=== PATIENT | male | born 1950 ===

== ENCOUNTER 2019-11-23 15:44 | Inpatient (IN) | payer OTHER, MEDICARE, SELFPAY ==
[2019-11-23] VITALS (27 sets, daily range): BP systolic 55–112; BP diastolic 23–51; PULSE 75–108; RESP 17–18; TEMP 35.8; O2SAT 82–98; BMI 29.9
--- NOTE | 2019-11-23 15:57 | XRR_ITS ---
PROCEDURE INFORMATION: Exam: XR Chest, 1 View Exam date and time: 11/23/2019 4:30 PM Age: 69 years old Clinical indication: Fever TECHNIQUE: Imaging protocol: XR of the chest Views: 1 view. COMPARISON: CR Chest 1 [place] [id number] 07/02/2018 10:27 AM FINDINGS: Lungs: There is a 3.7 cm sized mass overlying the right hilus, probably in the superior segment of the right lower lobe. There is also some mild bronchial wall thickening and patchy infiltrate in the right lower lobe. Findings are worrisome for pulmonary mass new compared with 07/02/2018. Further evaluation is recommended, beginning with PA and lateral views of the chest. Left lung is clear. Pleural space: Unremarkable. No pleural effusion. No pneumothorax. Heart/Mediastinum: Heart is upper limits normal in size. Vasculature: There are atherosclerotic changes in the aortic arch. Bones/joints: Unremarkable. XR/XR chest 1V portable [id number] IMPRESSION: Right pulmonary mass worrisome for malignancy. Further evaluation is recommended.
--- NOTE | 2019-11-23 15:57 | ECG_ITS ---
Measurements Intervals [place] Rate: 76 P: 74 SD: 249 QRS: 23 QRSD: 95 T: 54 QT: 376 QTc: 424 SINUS RHYTHM WITH FIRST DEGREE AV BLOCK Compared to ECG 07/02/2018 10:22:54 No significant changes Electronically Signed On 11-23-2019 21:02:43 RN ORTHOPEDIC by Tj Rios M.D. [id number]
--- NOTE | 2019-11-23 16:00 | ED_ITS ---
Entered by Maris Chisholm, acting as scribe for Inga Toledo MD HPI - Weakness General: Chief complaint: Weakness Stated complaint: GENERAL WEAKNESS Time Seen by Provider: 11/23/19 16:00 Source: patient and EMS Mode of arrival: EMS Limitations: no limitations History of Present Illness: HPI Narrative: 69 yo male presents to ED with complaints of weakness. The patient caregiver states the patient has not had anything to eat or drink since (4 days ago) and she said he has been weak.. When asked why, the patient said he hasn't been hungry or thirsty. The caregiver then said he smokes 3 packs of cigarettes per day and he has had no cigarettes since , as well. The patient's PCP is Dr Mayorga/[place] Complaint: generalized weakness Onset (ago): day(s) (4) Duration: constant Location: generalized Migration: none Severity: severe Relieving factors: none Exacerbating factors: none Associated symptoms: Reports decreased appetite; Denies chest pain, chills, dysuria, easy bruising, fever(s), headache(s), nausea or vomiting Review of Systems Const: Denies: fever, chills, body aches or change in appetite Eyes: Denies: blurry vision or eye discomfort ENMT: Denies: throat pain or dental pain Card: Denies: chest pain Resp: Denies: shortness of breath GI: Denies: abdominal pain, nausea, vomiting or diarrhea : Denies: painful urination Musc: Denies: neck pain or back pain Skin/Breast: Denies: rash Neuro: Denies: headache Psych: Denies: depression Harjit/Lymph: Denies: easy bruising All/Imm: Denies: hives PFSH ED PFSH: Statuses (acute, chronic, etc) shown below reflect problem list status as previously entered and may not be historically accurate Medical History (Updated 11/23/19 @ 23:51 by Inga Toledo MD) Aneurysm of infrarenal abdominal aorta (Acute) CAD (coronary artery disease) (Acute) Hypertension (Acute) Nephrolithiasis (Acute) Social History Smoking and tobacco status: current every day smoker Physical Exam Const: COMMON NORMALS: oriented x3 GENERAL APPEARANCE: in distress, disheveled, lethargic and ill appearing ORIENTATION/CONSCIOUSNESS: Yes lethargic HENMT: COMMON NORMALS: normocephalic, head/scalp atraumatic and hearing grossly normal bilaterally HEAD & SCALP: normocephalic and atraumatic Eye: COMMON NORMALS: PERRL PUPIL: Yes PERRL Neck/C-Spine: COMMON NORMALS: full ROM Chest: COMMONS NORMALS: inspection of chest normal and palpation of chest normal Resp: COMMON NORMALS: normal respiratory effort, no retractions, no use of accessory muscles and clear to auscultation bilaterally AUSCULTATION: clear to auscultation bilaterally Cardio: COMMON NORMALS: regular rate and regular rhythm RATE: regular rate RHYTHM: regular rhythm GI: COMMON NORMALS: normal to inspection, nondistended, normoactive bowel sounds, soft to palpation, non-tender and no hepatosplenomegaly PALPATION: Yes soft and Yes no hepatosplenomegaly Extremity: COMMON NORMALS: normal to inspection Neuro: COMMON NORMALS: oriented x3 SENSORIUM/ORIENTATION: Yes lethargic Psych: COMMON NORMALS: mental status grossly normal Procedures Central Line Placement Right IJ: Time Out Performed: Yes Patient Placed on Monitor/Pulse Ox: Yes MD Prep: mask, gown and gloves Central Line Prep: Povidone-Iodine 1% Ultrasound Used for Placement: Yes Central Line Lumen Inserted: triple Post Procedure: sutured in place, good blood return, all ports aspirated, flushed, capped and sterile dressing applied Post Procedure X-Ray: tip of catheter in good position and no pneumothorax seen Patient Tolerated Procedure: well Complications: none Course Vital Signs: Vital signs: Vital Signs Temperature 96.5 F L 11/23/19 15:35 Pulse Rate 89 11/23/19 22:36 Respiratory Rate 17 11/23/19 22:26 Blood Pressure 92/29 11/23/19 22:36 Pulse Oximetry 97 11/23/19 22:36 MDM - Weakness MDM Narrative: Medical decision making narrative: Patient presents here with multiple issues. Patient has septic shock likely due to UTI. Patient is also quite dehydrated causing acute kidney injury likely causing hypotension as well. Patient had a central line started here and placed on IV fluids along with pressors. Patient given IV antibiotics. Spoke to hospitalist will admit patient to ICU. Patient's blood pressure is improving here. Lab Data: Labs: Lab Results 11/23/19 11/23/19 11/23/19 Range/Units 16:38 16:38 18:07 WBC 21.6 H (4.0-10.0) 10^3/ uL RBC 4.62 (4.1-5.3) 10^6/u L Hgb 12.2 (11.7-16.6) g/dL Hct 38.0 L (42.0-52.0) % MCV 82.3 (80-94) fL MCH 26.4 L (28.0-34.0) pg MCHC 32.1 (30.0-36.0) g/dL RDW 15.4 H (12.1-15.1) % Plt Count 353 (130-400) 10^3/c mm MPV 9.6 (7.4-10.4) fL Neut % (Auto) 88.6 % Lymph % (Auto) 4.9 % [place] % (Auto) 5.1 % Eos % (Auto) 0.1 % Baso % (Auto) 0.1 % Neut # (Auto) 19.1 H (1.8-7.7) 10^3/u L Lymph # (Auto) 1.1 (0.8-4.8) 10^3/u L [place] # (Auto) 1.1 H (0.2-0.9) 10^3/u L Eos # (Auto) 0.0 (0.0-0.8) 10^3/u L Baso # (Auto) 0.0 (0.0-0.1) 10^3/u L Nucleated RBC % (a uto) 0 % Nucleated RBCs # 0.0 /100WBC Sodium 127 L (136-145) mmol/L Potassium 3.9 (3.5-5.1) mmol/L Chloride 86 L (98-107) mmol/L Carbon Dioxide 16 L (22-29) mmol/L Anion Gap 28.9 H (5-19) BUN 219 H* (8-23) mg/dL Creatinine 9.1 H* (0.7-1.2) mg/dL Glucose 101 (74-106) mg/dL Lactic Acid (0.5-2.2) mmol/L Calcium 10.4 (8.5-10.5) mg/dL Total Bilirubin 0.5 (0.15-1.2) mg/dL AST 24 (0-40) U/L ALT 16 (0-41) U/L Alkaline Phosphata se 93 (40-130) IU/L Total Protein 7.8 (6.6-8.7) g/dL Albumin 3.6 (3.5-5.2) g/dL Globulin 4.2 (1.3-4.6) g/dL Urine Color Brown (Yellow) Urine Appearance Turbid (CLEAR) Urine pH 5 (5-7) Ur Specific Gravit y 1.020 (1.005-1.030) Urine Protein 3+ H (Negative) Urine Glucose (UA) Trace H (Normal) Urine Ketones 1+ H (Negative) Urine Occult Blood 3+ H (Negative) Urine Nitrate Negative (Negative) Urine Bilirubin 1+ H (NEGATIVE) Prot Sulfosalicyli c Acd Negative Urine Urobilinogen Norm (Negative) mg/dL Ur Leukocyte Heather ase 2+ H (Negative) Urine RBC 50-80 H (0-2) /hpf Urine WBC 40-55 H (0-5) /hpf Ur Squamous Epith Cells 0-4 H (0-5) Urine Bacteria 4+ H (NONE) Urine Mucus 1+ 02/01/07 Range/Units 18:42 WBC (4.0-10.0) 10^3/ uL RBC (4.1-5.3) 10^6/u L Hgb (11.7-16.6) g/dL Hct (42.0-52.0) % MCV (80-94) fL MCH (28.0-34.0) pg MCHC (30.0-36.0) g/dL RDW (12.1-15.1) % Plt Count (130-400) 10^3/c mm MPV (7.4-10.4) fL Neut % (Auto) % Lymph % (Auto) % [place] % (Auto) % Eos % (Auto) % Baso % (Auto) % Neut # (Auto) (1.8-7.7) 10^3/u L Lymph # (Auto) (0.8-4.8) 10^3/u L [place] # (Auto) (0.2-0.9) 10^3/u L Eos # (Auto) (0.0-0.8) 10^3/u L Baso # (Auto) (0.0-0.1) 10^3/u L Nucleated RBC % (a uto) % Nucleated RBCs # /100WBC Sodium (136-145) mmol/L Potassium (3.5-5.1) mmol/L Chloride (98-107) mmol/L Carbon Dioxide (22-29) mmol/L Anion Gap (5-19) BUN (8-23) mg/dL Creatinine (0.7-1.2) mg/dL Glucose (74-106) mg/dL Lactic Acid 1.9 (0.5-2.2) mmol/L Calcium (8.5-10.5) mg/dL Total Bilirubin (0.15-1.2) mg/dL AST (0-40) U/L ALT (0-41) U/L Alkaline Phosphata se (40-130) IU/L Total Protein (6.6-8.7) g/dL Albumin (3.5-5.2) g/dL Globulin (1.3-4.6) g/dL Urine Color (Yellow) Urine Appearance (CLEAR) Urine pH (5-7) Ur Specific Gravit y (1.005-1.030) Urine Protein (Negative) Urine Glucose (UA) (Normal) Urine Ketones (Negative) Urine Occult Blood (Negative) Urine Nitrate (Negative) Urine Bilirubin (NEGATIVE) Prot Sulfosalicyli c Acd Urine Urobilinogen (Negative) mg/dL Ur Leukocyte Heather ase (Negative) Urine RBC (0-2) /hpf Urine WBC (0-5) /hpf Ur Squamous Epith Cells (0-5) Urine Bacteria (NONE) Urine Mucus Imaging Data^: CXR: Radiologist's impression: [address] [address] XRay Report Signed with Addenda Patient: Corbin Morgan #: [id number] : 8Acct#:[id number] Age/Sex: 69 / MADM Date: 11/23/19 Loc: ERRoom/Bed: Attending Dr: Ordering Provider/Ordering MD: Inga Toledo MD Date of Service: 11/23/19 Procedure(s): XR chest 1V portable [id number] Accession Number(s): [id number] Report Number: [id number] ADDENDUM XR/XR chest 1V portable [id number] Addendum: THIS REPORT CONTAINS FINDINGS THAT MAY BE CRITICAL TO PATIENT CARE. The findings were verbally communicated via telephone conference with inga Toledo at 5:12 PM [employer] on 11/23/2019. The findings were acknowledged and understood. Addendum Dictated By: Marco A Ramos Addendum Signed By: Hussein Ramos Date/Time:11/23/191714 Addendum Cosigned By: PROCEDURE INFORMATION: Exam: XR Chest, 1 View Exam date and time: 11/23/2019 4:30 PM Age: 69 years old Clinical indication: Fever TECHNIQUE: Imaging protocol: XR of the chest Views: 1 view. COMPARISON: CR Chest 1 [place] [id number] 07/02/2018 10:27 AM FINDINGS: Lungs: There is a 3.7 cm sized mass overlying the right hilus, probably in the superior segment of the right lower lobe. There is also some mild bronchial wall thickening and patchy infiltrate in the right lower lobe. Findings are worrisome for pulmonary mass new compared with 07/02/2018. Further evaluation is recommended, beginning with PA and lateral views of the chest. Left lung is clear. Pleural space: Unremarkable. No pleural effusion. No pneumothorax. Heart/Mediastinum: Heart is upper limits normal in size. Vasculature: There are atherosclerotic changes in the aortic arch. Bones/joints: Unremarkable. XR/XR chest 1V portable [id number] IMPRESSION: Right pulmonary mass worrisome for malignancy. Further evaluation is recommended. Dictated By:Marco A Ramos Signed By:Hussein Ramos Date/Time:11/23/191706 DD/ CT Chest: Radiologist's impression: [address] [address] [address] Scan Report Signed Patient: Corbin Morgan #: [id number] : 8Acct#:[id number] Age/Sex: 69 / MADM Date: 11/23/19 Loc: ERRoom/Bed: Attending Dr: Ordering Provider/Ordering MD: Inga Toledo MD Date of Service: 11/23/19 Procedure(s): CT chest wo greyson [id number] Accession Number(s): [id number] Report Number: [id number] PROCEDURE INFORMATION: Exam: CT Chest Without Contrast Exam date and time: 11/23/2019 5:34 PM Age: 69 years old Clinical indication: Cough and fever; Patient HX: Cough with fever. Abnormal cxr. ; Additional info: Mass TECHNIQUE: Imaging protocol: Computed tomography of the chest without contrast. Total DLP: 943.63 mGy-cm Radiation optimization: All CT scans at this facility use at least one of these dose optimization techniques: automated exposure control; mA and/or kV adjustment per patient size (includes targeted exams where dose is matched to clinical indication); or iterative reconstruction. COMPARISON: CR XR chest 1V portable [id number] 11/23/2019 4:17 PM FINDINGS: Lungs: There is a 3/2 x 5.0 x 3.5 cm mass in the superior segment of the left lower lobe corresponding with abnormality is described on today's chest radiograph. This is abutting the superior end of the major fissure and may be slightly crossing the fissure and also extends to the posterior pleural surface. Further evaluation such as with tissue sampling is suggested. There is some mild dependent atelectasis at the right lung base and also some mild bronchial wall thickening in the right lower lobe which could represent superimposed infectious or inflammatory disease. Pleural space: See Lungs Finding. Heart: There is severe atherosclerotic calcification of the coronary arteries. Mediastinum: Mass extends to the right hilar region. There is calcified granuloma in the right middle lobe and there are right hilar and subcarinal calcifications in keeping with old granulomatous disease. Aorta: There are moderate atherosclerotic changes throughout the aortic arch and descending thoracic aorta with minimal outpouching in the mid descending thoracic aorta which could represent small aneurysm of doubtful clinical significance. Lymph nodes: There is also right hilar adenopathy and subcarinal and right paratracheal adenopathy with the largest right paratracheal lymph node measuring approximately 3.3 x 2.2 cm and the subcarinal nodes measuring approximately 3.3 x 2.4 cm. Gallbladder and bile ducts: Multiple calcified gallstones are present. Kidneys and ureters: There are multiple right renal collecting system calcifications. There are multiple benign-appearing simple cysts in the upper pole regions of both kidneys, the largest measure 2.4 cm in the upper pole of the left kidney. There is also a 2 cm sized hyperdense cyst in the upper pole of the left kidney. No further workup is recommended. Bones/joints: Unremarkable. No acute fracture. Soft tissues: Unremarkable. CT/CT chest wo con [id number] IMPRESSION: 1. Right lower lobe mass which is highly suspicious for malignancy. Further evaluation such as with tissue sampling is suggested. Highly suspicious nodule(s). Consider PET/CT, or tissue sampling.(Sue et al., Fleischner Society, 2017) 2. Right hilar and mediastinal adenopathy. 3. Atherosclerotic coronary artery disease 4. Atherosclerotic changes in the aortic arch with minimal aneurysm of the descending thoracic aorta 5. Cholelithiasis 6. Nephrolithiasis Radiation Dose CTDIVOL = (mGy): DLP = 943.63 (mGy-cm) Dictated By:Marco A Ramos Signed By:Ryan Ramosigned Date/Time:11/23/191814 DD/ Critical Care Time Critical Care Time: Critical Care Time: Yes Total Critical Care Time: 35 Attestation: 35 minutes of critical care time was used in treatment of this patient. Patient required monitoring of cardiac output due to hypotension and started on pressors to manage his cardiac output with hypotension. Patient was also quite dehydrated given IV fluids for this. Continue to monitor his respiratory status as well. These 35 minutes of critical care time were separate from procedures. Discharge Plan Discharge Patient Disposition: Admitted As Inpatient Admit Provider: Rolando Booker Clinical Impression: Acute renal failure superimposed on stage 2 chronic kidney disease, Septic shock due to urinary tract infection, Right lower lobe lung mass Condition: Stable Interventions: ED Discharge Assessment Last Done: 11/23/19 23:49 Discharge Date/Time: 11/23/19 23:50 Coding Level of Care Code ED Ethylbenzene Oxidizer for Chg Fwd The documentation recorded by the Phan martinez Valerie R accurately reflects the service I personally performed and the decisions made by Tre siu Korby, MD Nov 23, 2019 15:44
[2019-11-23 16:49] LABS: Basophils % 0.1 %; Eosinophils % 0.1 %; Hemoglobin 12.2 g/dL (11.7-16.6); Lymphocytes # 1.1 10^3/uL (0.8-4.8); Lymphocytes % 4.9 %; Mean Corpuscular HGB Conc 32.1 g/dL (30.0-36.0); Mean Corpuscular Hemoglobin 26.4 pg (28.0-34.0); Mean Corpuscular Volume 82.3 fL (80-94); Mean Platelet Volume 9.6 fL (7.4-10.4); Monocytes # 1.1 10^3/uL (0.2-0.9); Monocytes % 5.1 %; Neutrophils # 19.1 10^3/uL (1.8-7.7); Neutrophils % 88.6 %; Nucleated Red Blood Cells % 0 %; Platelet Count 353 10^3/cmm (130-400); Red Blood Count 4.62 10^6/uL (4.1-5.3); Red Cell Distribution Width 15.4 % (12.1-15.1); White Blood Count 21.6 10^3/uL (4.0-10.0)
[2019-11-23 17:02] LABS: Alanine Aminotransferase 16 U/L (0-41); Albumin Level 3.6 g/dL (3.5-5.2); Alkaline Phosphatase 93 IU/L (40-130); Anion Gap 28.9 (5-19); Aspartate Amino Transferase 24 U/L (0-40); Calcium 10.4 mg/dL (8.5-10.5); Carbon Dioxide 16 mmol/L (22-29); Chloride 86 mmol/L (98-107); Globulin 4.2 g/dL (1.3-4.6); Glucose 101 mg/dL (74-106); Potassium 3.9 mmol/L (3.5-5.1); Sodium 127 mmol/L (136-145); Total Bilirubin 0.5 mg/dL (0.15-1.2); Total Protein 7.8 g/dL (6.6-8.7)
[2019-11-23 17:12] LABS: Blood Urea Nitrogen 219 mg/dL (8-23)
--- NOTE | 2019-11-23 17:17 | CTR_ITS ---
PROCEDURE INFORMATION: Exam: CT Chest Without Contrast Exam date and time: 11/23/2019 5:34 PM Age: 69 years old Clinical indication: Cough and fever; Patient HX: Cough with fever. Abnormal cxr. ; Additional info: Mass TECHNIQUE: Imaging protocol: Computed tomography of the chest without contrast. Total DLP: 943.63 mGy-cm Radiation optimization: All CT scans at this facility use at least one of these dose optimization techniques: automated exposure control; mA and/or kV adjustment per patient size (includes targeted exams where dose is matched to clinical indication); or iterative reconstruction. COMPARISON: CR XR chest 1V portable [id number] 11/23/2019 4:17 PM FINDINGS: Lungs: There is a 3/2 x 5.0 x 3.5 cm mass in the superior segment of the left lower lobe corresponding with abnormality is described on today's chest radiograph. This is abutting the superior end of the major fissure and may be slightly crossing the fissure and also extends to the posterior pleural surface. Further evaluation such as with tissue sampling is suggested. There is some mild dependent atelectasis at the right lung base and also some mild bronchial wall thickening in the right lower lobe which could represent superimposed infectious or inflammatory disease. Pleural space: See Lungs Finding. Heart: There is severe atherosclerotic calcification of the coronary arteries. Mediastinum: Mass extends to the right hilar region. There is calcified granuloma in the right middle lobe and there are right hilar and subcarinal calcifications in keeping with old granulomatous disease. Aorta: There are moderate atherosclerotic changes throughout the aortic arch and descending thoracic aorta with minimal outpouching in the mid descending thoracic aorta which could represent small aneurysm of doubtful clinical significance. Lymph nodes: There is also right hilar adenopathy and subcarinal and right paratracheal adenopathy with the largest right paratracheal lymph node measuring approximately 3.3 x 2.2 cm and the subcarinal nodes measuring approximately 3.3 x 2.4 cm. Gallbladder and bile ducts: Multiple calcified gallstones are present. Kidneys and ureters: There are multiple right renal collecting system calcifications. There are multiple benign-appearing simple cysts in the upper pole regions of both kidneys, the largest measure 2.4 cm in the upper pole of the left kidney. There is also a 2 cm sized hyperdense cyst in the upper pole of the left kidney. No further workup is recommended. Bones/joints: Unremarkable. No acute fracture. Soft tissues: Unremarkable. CT/CT chest wo con [id number] IMPRESSION: 1. Right lower lobe mass which is highly suspicious for malignancy. Further evaluation such as with tissue sampling is suggested. Highly suspicious nodule(s). Consider PET/CT, or tissue sampling.(Sue et al., Fleischner Society, 2017) 2. Right hilar and mediastinal adenopathy. 3. Atherosclerotic coronary artery disease 4. Atherosclerotic changes in the aortic arch with minimal aneurysm of the descending thoracic aorta 5. Cholelithiasis 6. Nephrolithiasis Radiation Dose CTDIVOL = (mGy): DLP = 943.63 (mGy-cm)
--- NOTE | 2019-11-23 17:44 | PC.NURSE ---
patient to ct
--- NOTE | 2019-11-23 18:11 | PC.NURSE ---
patient cathed with straight cath using sterild technique small amount of urine prodiced
[2019-11-23 18:23] LABS: Bilirubin Urine 1+ (NEGATIVE); Blood Urine 3+ (Negative); Glucose Urine UA Trace (Normal); Ketones Urine 1+ (Negative); Leukocyte Esterase Urine 2+ (Negative); Nitrate Urine Negative (Negative); Protein Urine 3+ (Negative); Sulfosalicylic Acid Urine Negative; Urine Appearance Turbid (CLEAR); Urine Color Brown (Yellow); Urobilinogen Urine Norm (Negative); pH Urine 5 (5-7)
[2019-11-23 18:26] LABS: Add Urine Culture? Yes; Bacteria Urine 4+; Mucus Urine 1+; RBC Urine 50-80 /hpf (0-2); Squamous Epithelial Cell Urine 0-4 (0-5); WBC Urine 40-55 /hpf (0-5)
--- NOTE | 2019-11-23 18:43 | CTR_ITS ---
PROCEDURE INFORMATION: Exam: CT Abdomen And Pelvis Without Contrast Exam date and time: 11/23/2019 6:51 PM Age: 69 years old Clinical indication: Abdominal pain; Generalized; Additional info: Abd pain TECHNIQUE: Imaging protocol: Computed tomography of the abdomen and pelvis without contrast. Total DLP: 824.1 mGy-cm Radiation optimization: All CT scans at this facility use at least one of these dose optimization techniques: automated exposure control; mA and/or kV adjustment per patient size (includes targeted exams where dose is matched to clinical indication); or iterative reconstruction. COMPARISON: CT Abdomen/Pelvis Renal [id number] 04/18/2017 2:43 PM FINDINGS: Limitations: The absence of intravenous contrast lessens the sensitivity of this study for solid organ. abnormalities. Liver: There is no focal abnormality within the liver. Gallbladder and bile ducts: Multiple calcified gallstones are present. Pancreas: The pancreas is normal. Spleen: The spleen is normal. Adrenals: The adrenal glands are normal. Kidneys and ureters: There are multiple right renal collecting system calcifications. Some calcifications central to both kidneys are likely to be vascular. There are multiple benign-appearing simple cysts in both kidneys, the largest measure 2.6 cm in the lower pole of the left kidney. There is also a 2 cm sized hyperdense cyst in the upper pole of the left kidney. There is also an indeterminate 12 mm sized lesion arising from the lower pole of the right kidney with indeterminate density. Recommend MR without and with contrast or CT without and with contrast. MR is preferred for masses under 1.5 cm. There is no evidence of hydronephrosis. There is no stone along the course of either ureter. Stomach and bowel: Moderate diverticulosis is present in the distal colon. There is no evidence of colitis/diverticulitis. Appendix: Not identifiedThe lumbar spine demonstrates moderate degenerative changes at multiple levels. Intraperitoneal space: There is no evidence of leakage or extravasation. There is no evidence of free intraperitoneal fluid. Vasculature: There is mild suprarenal aneurysm of the abdominal aorta with maximum diameter of 3.5 cm. There is also fusiform infrarenal abdominal aortic aneurysm with maximum diameter of 4.0 cm. Lymph nodes: There is a 12 mm size nodule adjacent to the right adrenal gland, probably benign lymph node. This is smaller than on 04/18/2017 Bladder: There is a 1.6 cm size calcification within the urinary bladder representing a bladder stone larger than on the previous study. Urinary bladder is not distended on this examination. Reproductive: Unremarkable as visualized. Bones/joints: Unremarkable. No acute fracture. Soft tissues: Unremarkable. CT/CT abdomen pelvis wo con [id number] IMPRESSION: 1. Multiple benign-appearing bilateral kidney cysts with 1 indeterminate lesion in the lower pole of the right kidney. Further evaluation is suggested. 2. Infrarenal abdominal aortic aneurysm is slightly larger than on 04/18/2017. 3. Kidney stones without evidence of obstruction 4. Stone in the urinary bladder COMMENT: Consistent with the [employer]'s Incidental Findings Committee white paper (J Am Luis Radiol 2017): For any incidental adrenal lesion greater than 1.0 cm but less than 4.0 cm classified in this report as benign or likely benign (including classification as an adenoma or myelolipoma), no follow-up imaging is recommended per consensus recommendations based on imaging criteria. Further lab evaluation could be pursued if warranted based on clinical findings. Radiation Dose CTDIVOL = (mGy): DLP = 824.1 (mGy-cm)
[2019-11-23 19:09] LABS: Lactic Sepsis W/Reflex 1.9 mmol/L (0.5-2.2)
[2019-11-23] MEDS: sodium chloride 0.9% 1,000 ML 999 ML IV ×2 (19:13→19:35)
[2019-11-23] MEDS: HYDROcodone-acetaminophen 7.5-325 mg Tablet 1 TAB PO (19:16)
[2019-11-23] MEDS: piperacillin-tazobactam 3.375 GM in sodium chloride 0.9% (plus) 50 ML IV (19:19)
[2019-11-23] MEDS: vancomycin 1,000 MG in sodium chloride 0.9% 250 ML 250 MG IV (19:40)
--- NOTE | 2019-11-23 20:54 | PC.NURSE ---
Rounded on patient. Took patients blood pressure. Patients blood pressure still very low. Patients IV fluids and medication was complete. This RN went to disconnect the patients fluids and Abx and then noticed that the patients IV had been pulled out and the patients bed was wet. This RN notified the physician.
--- NOTE | 2019-11-23 21:27 | XRR_ITS ---
PROCEDURE INFORMATION: Exam: XR Chest, 1 View Exam date and time: 11/23/2019 9:58 PM Age: 69 years old Clinical indication: Device placement; Other: Central line placement TECHNIQUE: Imaging protocol: XR of the chest Views: 1 view. COMPARISON: CR XR chest 1V portable [id number] 11/23/2019 4:17 PM FINDINGS: Limitations: Parts of the left lung are cut off on this examination. Tubes, catheters and devices: Right jugular central venous catheter tip is in the superior vena cava. Lungs: Right lower lobe mass is not as well seen is on the examination done earlier today. Pleural space: No pneumothorax is identified. Heart/Mediastinum: Unremarkable. No cardiomegaly. Bones/joints: Unremarkable. XR/XR chest 1V portable [id number] IMPRESSION: No pneumothorax following central line placement.
[2019-11-23] MEDS: sodium chloride 0.9% 1,000 ML 100 ML IV (22:05)
[2019-11-23] MEDS: LORazepam 2 mg/mL INJ 1 mL 0.5 MG IVP (22:16)
[2019-11-23] MEDS: lactated ringers 1,000 ML 999 ML IV (22:55)
--- NOTE | 2019-11-23 23:11 | P.HP_ITS ---
Providers/Chief Complaint Admitting Physician: Rolando Booker MD Primary Care Provider: Wally Franco Chief Complaint: ACUTE KITNEY INJURY, SEPTIC SHOCK, UTI History of Present Illness Corbin Morgan is a 69 year old male with a past medical history of COPD, chronic kidney disease stage II, infrarenal abdominal aortic aneurysm, underlying dementia, CAD status post stenting x3, hypertension, dyslipidemia, history of urolithiasis, history of septic shock secondary to pyelonephritis and urolithiasis in June 2015, who presents to the emergency room due to weakness, fatigue, poor appetite, altered mental status. Currently patient is alert and oriented x1, no history could be obtained from the patient, he keeps repeating 2, he is not making any sense, most of the history was obtained from patient's via telephone and through the EMR. Patient's states that patient has a chronic history of COPD, smokes a pack per day, has chronic nephrolithiasis, for which she sees Dr. Dugan as outpatient. Was relatively doing okay, but since , patient started to become more forgetful, had alterations of his mentations, stopped eating, stop drinking, he fell a couple of times, symptoms started to progressively get worse, thus patient's decided to call the EMS this afternoon. Review of the EMR shows that patient has a history of nephrolithiasis, sees Dr. Dugan as outpatient, patient had admission July 15, 2015 for septic shock secondary to UTI and right-sided pyelonephritis. Review of Systems General: Reports: ROS unobtainable due to mental status Medications/Allergies Allergies Allergy/AdvReac Type Severity Reaction Status Date / Time No Known Allergies Allergy Verified 11/23/19 15:41 PFSH Acute PFSH: Statuses (acute, chronic, etc) shown below reflect problem list status as previously entered and may not be historically accurate Medical History (Updated 11/23/19 @ 23:22 by Rolando Booker MD) Aneurysm of infrarenal abdominal aorta (Acute) CAD (coronary artery disease) (Acute) Hypertension (Acute) Nephrolithiasis (Acute) Social History Smoking and tobacco status: current every day smoker Vitals/I&O/Wt Last Vital Signs Temp 96.5 F L 11/23/19 15:35 Pulse 89 11/23/19 22:26 Resp 17 11/23/19 22:26 BP 112/45 11/23/19 22:26 Pulse Ox 93 11/23/19 22:26 11/23/19 11/23/19 11/24/19 14:59 22:59 06:59 Intake Total 3321.448 / 3321.448 Balance 3321.448 / 3321.448 Weight last 48 hrs Weight 97.522 kg Physical Exam Narrative: EXAM NARRATIVE: Patient septic shock Const: COMMON NORMALS: alert EXAM LIMITATIONS: altered mental status GENERAL APPEARANCE: comfortable, disheveled and frail appearing NUTRITIONAL APPEARANCE: obese ORIENTATION/CONSCIOUSNESS: Yes awake HENMT: COMMON NORMALS: normocephalic HEAD & SCALP: normocephalic Eye: COMMON NORMALS: PERRL, EOMs intact bilaterally and no papilledema GENERAL EYE: normal appearance of both eyes PUPIL: Yes PERRL DIRECT OPHTHALMOSCOPY: Yes no papilledema Neck/C-Spine: COMMON NORMALS: full ROM, no lymphadenopathy, no JVD and thyroid normal THYROID: thyroid normal Lymph: LYMPHATIC: no lymphadenopathy noted Chest: COMMONS NORMALS: inspection of chest normal Resp: COMMON NORMALS: normal respiratory effort, no retractions, no use of accessory muscles and clear to auscultation bilaterally AUSCULTATION: clear to auscultation bilaterally Cardio: COMMON NORMALS: no JVD, regular rate, regular rhythm, S1 normal heart sound, S2 normal heart sound, no gallops, no clicks and no murmurs RATE: regular rate and tachycardic HEART SOUNDS: S1 normal and S2 normal GI: COMMON NORMALS: normal to inspection, nondistended, normoactive bowel sounds, soft to palpation, non-tender and no hepatosplenomegaly PALPATION: Yes soft and Yes no hepatosplenomegaly Back/Pelvis: COMMON NORMALS: no CVA tenderness Extremity: COMMON NORMALS: normal to inspection, full ROM, no clubbing, cyanosis or edema and no pedal edema Neuro: COMMON NORMALS: moves all extremities SENSORIUM/ORIENTATION: Yes alert and Yes fluctuating sensorium OTHER: Unable to cooperate with neurologic exam Psych: COMMON NORMALS: mental status grossly normal, thought process normal and cooperative THOUGHT PROCESS: normal thought process Sepsis: Is patient septic: Yes Focused sepsis exam performed: Yes Date exam was performed: 11/23/19 Time exam was performed: 23:23 Data : 11/23/19 16:38 11/23/19 16:38 Micro: Microbiology 11/23/19 18:43 Blood Culture - Preliminary Blood SPECIMEN COLLECTED 11/23/19 18:43 Blood Culture - Preliminary Blood SPECIMEN COLLECTED 11/23/19 16:33 Blood Culture - Preliminary Blood SPECIMEN COLLECTED 11/23/19 16:38 Blood Culture - Preliminary Blood SPECIMEN COLLECTED A&P Assessment and plan (1) Septic shock due to urinary tract infection: -Currently patient is altered mental status, does not respond to questions appropriately -blood pressure on admission was 89/43, heart rate 75, respiratory rate 18, temperature 96.5, white blood cell count 21.6, with left shift neutrophils 19.1, creatinine 9.1, BUN to 19, bicarb 16, UA 3+ blood, 2+ leukocyte esterase, 40-55 WBCs, 50-80 RBCs, 4+ bacteria -Kidneys and ureters: There are multiple right renal collecting system calcifications. Some calcifications central to both kidneys are likely to be vascular. There are multiple benign-appearing simple cysts in both kidneys, the largest measure 2.6 cm in the lower pole of the left kidney. There is also a 2 cm sized hyperdense cyst in the upper pole of the left kidney. There is also an indeterminate 12 mm sized lesion arising from the lower pole of the right kidney with indeterminate density. Recommend MR without and with contrast or CT without and with contrast. MR is preferred for masses under 1.5 cm. There is no evidence of hydronephrosis. There is no stone along the course of either ureter -here is a 1.6 cm size calcification within the urinary bladder representing a bladder stone larger than on the previous study -Has received 2 L so far bolus in the ER, right central line placed, currently on Levophed, blood pressure is 112/45, pulse 89, respiratory rate 17, temperature 96.5, saturating in the high 90s on room air -Currently patient septic shock secondary to urinary tract infection with nephrolithiasis, I believe patient is in septic shock, and requires ICU admission Plan: -Admit to ICU -500 LR boluses, followed by treated machine to check for fluid responsiveness -We will try to wean off Levophed -Broad-spectrum antibiotics vancomycin and Zosyn -Follow urine cultures, blood cultures -Goal is to maintain map greater than 65 -DVT prophylaxis Lovenox -GI prophylaxis Protonix -Monitor lactic acids Status: Acute Code(s): A41.9 - Sepsis, unspecified organism; R65.21 - Severe sepsis with septic shock; N39.0 - Urinary tract infection, site not specified (2) Acute renal failure superimposed on stage 2 chronic kidney disease: Creatinine 9.6, has baseline CKD stage II Monitor urine output, monitor creatinine, Us catheter in place Status: Acute Code(s): N17.9 - Acute kidney failure, unspecified; N18.2 - Chronic kidney disease, stage 2 (mild) (3) Right lower lobe lung mass: 1. Right lower lobe mass which is highly suspicious for malignancy. Further evaluation such as with tissue sampling is suggested. Highly suspicious nodule(s). Consider PET/CT, or tissue sampling.(Sue et al., Fleischner Society, 2017) 2. Right hilar and mediastinal adenopathy. Plan 1 patient is clinically survived his septic shock, will do work-up for right lower lobe lung mass, with in a smoker Status: Acute Code(s): R91.8 - Other nonspecific abnormal finding of lung field (4) Hypertension: Status: Acute Code(s): I10 - Essential (primary) hypertension (5) CAD (coronary artery disease): Status: Acute Code(s): I25.10 - Atherosclerotic heart disease of [place] coronary artery without angina pectoris (6) Aneurysm of infrarenal abdominal aorta: Status: Acute Code(s): I71.4 - Abdominal aortic aneurysm, without rupture Attestations Medical Necessity Statement*: Patient requires hospitalization, inpatient, I see admission, for septic shock secondary to urinary tract infection, right lower lobe lung mass Coding Level of Care Code 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 [facility] Diagnoses Septic shock due to urinary tract infection A41.9; R65.21; N39.0 Acute renal failure superimposed on stage 2 chronic kidney disease N17.9; N18.2 Right lower lobe lung mass R91.8 Hypertension I10 CAD (coronary artery disease) I25.10 Aneurysm of infrarenal abdominal aorta I71.4 Sepsis Event Note Evaluation Current stage of sepsis: severe sepsis Reason for ruling out sepsis: Patient is actually septic shock, I keep getting it here if I put in the septic shock but in above, so I had to select severe sepsis Initial hypotension due to sepsis/infection: SBP < 90 mmHg and MAP < 65 mmHg Persistent hypotension due to sepsis/infection: SBP < 90 mmHg and MAP < 65 mmHg Possible source: genitourinary Focused Exam Vital Signs Temp Pulse Resp BP Pulse Ox 11/23/19 22:26 89 17 112/45 93 11/23/19 22:01 80 92/40 91 11/23/19 21:35 92 73/42 98 11/23/19 21:31 87 73/33 98 11/23/19 20:54 88 55/23 92 11/23/19 20:50 89 17 68/34 95 11/23/19 20:49 87 56/29 94 11/23/19 19:45 84 17 97/31 92 11/23/19 19:39 78 84/41 94 11/23/19 18:23 85 18 85/33 94 11/23/19 16:27 95 11/23/19 15:35 96.5 F L 75 18 89/43 94 Respiratory exam: Absent accessory muscle use Cardiovascular exam: Present tachycardia Capillary refill: > 3 Seconds Peripheral pulse strength: 1+ Faint Peripheral pulse location: Posterior Tibial Skin exam: pale Date exam was performed: 11/23/19 Time exam was performed: 23:24
[2019-11-23] MEDS: haloperidol inj 5 mg/mL INJ 1 mL 2 MG IVP (23:15)
[2019-11-24] VITALS (33 sets, daily range): BP systolic 61–174; BP diastolic 34–136; PULSE 60–112; RESP 12–24; TEMP 37; O2SAT 89–97
[2019-11-24] MEDS: vancomycin 500 MG in sodium chloride 0.9% (plus) 100 ML 100 MG IV (00:12)
[2019-11-24] MEDS: sodium bicarbonate 8.4% 1 mEq/mL 50mL Syr 25 MEQ IVP (00:12)
[2019-11-24] MEDS: heparin 5,000 unit/mL INJ 1 mL 5000 UNIT SUBCUT ×3 (00:12→23:22)
[2019-11-24] MEDS: lactated ringers 1,000 ML 999 ML IV (00:12)
[2019-11-24 00:13] LABS: Lactic Sepsis W/Reflex 1.9 mmol/L (0.5-2.2)
--- NOTE | 2019-11-24 00:23 | PC.PHAR ---
Creatinine clearance is 8.868. Vancomycin is dosed at 500mg IVPB every 36 hours to produce a predicted trough level of 15.11 (population based pharmacokinetic analysis). A trough level has been ordered from the lab to be obtained before the third dose to confirm and adjust if needed. The Zosyn is dosed at 3.375mg IVPB ever 12 hours, each dosed to be infused over 4 hours per extended infusion protocol.
[2019-11-24 00:25] LABS: Thyroid Stimulating Hormone 0.79 uIU/mL (0.27-4.20)
[2019-11-24] MEDS: pantoprazole 40 mg SDV IVP ×3 (00:26→23:21)
[2019-11-24 00:44] LABS: Alanine Aminotransferase 14 U/L (0-41); Albumin Level 2.8 g/dL (3.5-5.2); Alkaline Phosphatase 72 IU/L (40-130); Aspartate Amino Transferase 22 U/L (0-40); Calcium 8.9 mg/dL (8.5-10.5); Carbon Dioxide 11 mmol/L (22-29); Chloride 94 mmol/L (98-107); Creatine Phosphokinase 162 U/L (39-308); Globulin 3.5 g/dL (1.3-4.6); Glucose 150 mg/dL (74-106); Sodium 132 mmol/L (136-145); Total Bilirubin 0.6 mg/dL (0.15-1.2); Total Protein 6.3 g/dL (6.6-8.7)
[2019-11-24 01:00] LABS: Blood Urea Nitrogen 177 mg/dL (8-23)
--- NOTE | 2019-11-24 01:41 | PC.NURSE ---
Patients states [facility]. Will bring bottles in AM, she is unsure of what he takes. Denies taking blood thinners or history of Cardiac arrhythmias
[2019-11-24] MEDS: lactated ringers 1,000 ML 500 ML IV ×2 (02:07→04:10)
[2019-11-24 04:59] LABS: Basophils % 0.2 %; Eosinophils # 0.1 10^3/uL (0.0-0.8); Eosinophils % 0.3 %; Hematocrit 32.8 % (42.0-52.0); Hemoglobin 10.6 g/dL (11.7-16.6); Lymphocytes # 1.8 10^3/uL (0.8-4.8); Lymphocytes % 7.7 %; Mean Corpuscular HGB Conc 32.3 g/dL (30.0-36.0); Mean Corpuscular Hemoglobin 26.8 pg (28.0-34.0); Mean Corpuscular Volume 82.8 fL (80-94); Mean Platelet Volume 9.7 fL (7.4-10.4); Monocytes # 1.3 10^3/uL (0.2-0.9); Monocytes % 5.4 %; Neutrophils # 20.2 10^3/uL (1.8-7.7); Neutrophils % 85.1 %; Nucleated Red Blood Cells % 0 %; Platelet Count 306 10^3/cmm (130-400); Red Blood Count 3.96 10^6/uL (4.1-5.3); Red Cell Distribution Width 15.5 % (12.1-15.1); White Blood Count 23.8 10^3/uL (4.0-10.0)
[2019-11-24 05:10] LABS: Partial Thromboplastin Time 33.6 SECONDS (23.9-36.7)
[2019-11-24 05:16] LABS: Alanine Aminotransferase 13 U/L (0-41); Albumin Level 2.4 g/dL (3.5-5.2); Alkaline Phosphatase 66 IU/L (40-130); Anion Gap 25.8 (5-19); Aspartate Amino Transferase 21 U/L (0-40); Calcium 8.8 mg/dL (8.5-10.5); Carbon Dioxide 14 mmol/L (22-29); Chloride 96 mmol/L (98-107); Globulin 3.3 g/dL (1.3-4.6); Glucose 126 mg/dL (74-106); Lactic Sepsis W/Reflex 1.1 mmol/L (0.5-2.2); Magnesium 2.9 mg/dL (1.7-2.3); Potassium 3.8 mmol/L (3.5-5.1); Sodium 132 mmol/L (136-145); Total Bilirubin 0.5 mg/dL (0.15-1.2); Total Protein 5.7 g/dL (6.6-8.7)
[2019-11-24 05:27] LABS: Blood Urea Nitrogen 170 mg/dL (8-23); Phosphorus 7.9 mg/dL (2.5-4.5)
[2019-11-24 05:41] LABS: Procalcitonin 0.85 ng/mL (0-0.5)
--- NOTE | 2019-11-24 08:00 | CT_ITS ---
WS: [id number] CT HEAD TECHNIQUE: Noncontrast CT of the head obtained from the skullbase to the vertex. CLINICAL INFORMATION: confusion COMPARISON: None. DLP: 3207.[address] scans at [facility] use at least one of these dose optimization techniques: automat ed exposure control; mA and/or kV adjustment per patient size (includes targeted exams where dose is matched to clinical indication); or iterative reconstruction. FINDINGS: Some images degraded by patient motion. Head rotated to the left. No evidence of intracranial hemorrhage or mass effect. Ventricular system and basal cisterns are polk nt. Mild small vessel changes with moderate parenchymal volume loss. No extra-axial fluid collections . No evidence of mass or mass effect. Normal arredondo-white differentiation. Paranasal sinuses and mastoid air cells are well aerated. .Normal visualized soft tissues. CT/CT head wo con* [id number] IMPRESSION: 1. No evidence of intracranial hemorrhage or mass effect. 2. Mild small vessel changes. Moderate parenchymal volume loss. 3. No acute intracranial findings.
[2019-11-24] MEDS: piperacillin-tazobactam 3.375 GM in sodium chloride 0.9% (plus) 50 ML IV ×2 (10:06→21:14)
--- NOTE | 2019-11-24 11:26 | P.CONIM_ITS ---
Providers/Reason For Consult Consulting Physican/Specialty*: Nephrology Reason for Consult*: evaluation of renal failure Attending Physician: Tejas Madrigal MD Primary Care Provider: Wally Franco History of Present Illness History of Present Illness Corbin Morgan is a 69 year old male Thanks for consult. On interview Corbin was not willing to converse and insisted on being left alone. Essentially, he presents with ~ 3days of not eating, drinking or even smoking, is lethargic and slightly confused. CT scans shows no hydro but multiple vascular calcifications and no benign cysts. CT chest demonstrates a new mass consistent with neoplasia. He denies the prior history of acute or chronic kidney disease, has never seen a kidney specialist to receive dialysis. Further questioning about urinary symptoms etc. was met with grumbling and silence. At this time we do not have a list of medications he was taking prior to his hospitalization. Review of Systems General: Reports: 10 or more systems reviewed and unremarkable except in HPI and below Meds/Allergies Home Medications and Allergies Home Medications Medication Instructions Recorded Confirmed Type Unable to Assess 11/24/19 11/24/19 History Allergies Allergy/AdvReac Type Severity Reaction Status Date / Time No Known Allergies Allergy Verified 11/23/19 15:41 Current Medications Current Medications Generic Name Dose Route Start Last Admin Trade Name Freq PRN Reason Stop Dose Admin Haloperidol Lactate 2 mg 11/23/19 23:09 11/23/19 23:15 Haldol Inj IVP 2 mg Q4H PRN Administration AGITATION Heparin Sodium (Beef Lung) 5,000 unit 11/24/19 11:00 11/24/19 10:05 Heparin SUBCUT 5,000 unit Q12H NOELLE Administration Norepinephrine Bitartrate 4 mg 254 mls @ 0 mls/hr 11/23/19 21:00 11/24/19 06:31 / Dextrose IV 6 mcg/min .Q0M NOELLE 22.9 mls/hr Administration Protocol Per Protocol Lactated Ringer's 1,000 mls @ 100 mls/hr 11/23/19 23:15 11/24/19 04:45 Lactated Ringers IV 100 mls/hr .Q10H NOELLE Infusion Vancomycin HCl 500 mg/ Sodium 100 mls @ 100 mls/hr 11/24/19 00:00 11/24/19 01:35 Chloride IV Infused Q36H NOELLE Infusion Protocol As Directed Piperacillin Sod/Tazobactam 50 mls @ 12.5 mls/hr 11/24/19 07:00 11/24/19 10:06 Sod 3.375 gm/ Sodium Chloride IV 12.5 mls/hr Q12H NOELLE Administration Protocol As Directed Dexmedetomidine HCl 400 mcg/ 104 mls @ 0 mls/hr 11/24/19 01:00 11/24/19 08:46 Sodium Chloride IV 0.5 mcg/kg/hr .Q0M NOELLE 12.7 mls/hr Administration Protocol Per Protocol Pantoprazole Sodium 40 mg 11/24/19 00:15 11/24/19 00:26 Protonix IVP 40 mg Q12H NOELLE Administration PFSH Acute PFSH: Statuses (acute, chronic, etc) shown below reflect problem list status as previously entered and may not be historically accurate Medical History (Updated 11/23/19 @ 23:51 by Inga Toledo MD) Aneurysm of infrarenal abdominal aorta (Acute) CAD (coronary artery disease) (Acute) Hypertension (Acute) Nephrolithiasis (Acute) Social History Smoking and tobacco status: current every day smoker Vitals/I&O/Wt Last Vital Signs Temp 96.5 F L 11/23/19 15:35 Pulse 74 11/24/19 10:00 Resp 14 11/24/19 10:00 BP 94/43 11/24/19 10:00 Pulse Ox 96 11/24/19 10:00 11/23/19 11/24/19 11/24/19 22:59 06:59 14:59 Intake Total 3321.448 / 3321.448 2624.219 / 5945.667 97.578 / 97.578 Output Total 200 / 200 Balance 3321.448 / 3321.448 2424.219 / 5745.667 97.578 / 97.578 Weight last 48 hrs Weight 97.522 kg Physical Exam HENMT: COMMON NORMALS: normocephalic and head/scalp atraumatic HEAD & SCALP: normocephalic and atraumatic Neck/C-Spine: COMMON NORMALS: no JVD Chest: COMMONS NORMALS: inspection of chest normal and palpation of chest normal Cardio: COMMON NORMALS: no JVD, regular rate, S1 normal heart sound and S2 normal heart sound RATE: regular rate HEART SOUNDS: S1 normal and S2 normal Extremity: COMMON NORMALS: normal to inspection and full ROM Urinary Catheter Management^: Us: Cath Placed During This Visit: no Data Micro: Micro: Microbiology 11/23/19 18:43 Blood Culture - Pr eliminary Blood SPECIMEN [facility] 11/23/19 18:43 Blood Culture - Pr eliminary Blood SPECIMEN [facility] 11/23/19 16:33 Blood Culture - Pr eliminary Blood SPECIMEN [facility] 11/23/19 16:38 Blood Culture - Pr eliminary Blood SPECIMEN [facility] A&P Additional A&P Information 1. Renal failure on the face of things this appears to be prerenal azotemia, although quite a profound case. Also possible is the influence of medications prior to hospitalization and this is yet to be clarified underlying renal vascular disease also evident making more vulnerable to prerenal insult. No evidence of obstructive uropathy. Creatinine is down trending, however, urine output is somewhat lackluster. No indication for dialysis today, however this may be potentially necessary the next few days if we do not see a robust improvement. cont aggressive ivf therapy Urine studies requested Will also get CPK and TSH levels strict ins and outs 2. Lung mass ongoing work up and management for this., At the end of the day he really depends upon what Corbin wants to do. He may not take a proactive approach, but a more palliative approach. 3. Leukocytosis infection versus reactivity. Cultures pending, coupled broad-spectrum antibiotics. Interview and evaluation for invited telemedicine. The case was discussed at length with Dr. 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
[2019-11-24 12:53] LABS: Creatine Phosphokinase 250 U/L (39-308); Thyroid Stimulating Hormone 0.67 uIU/mL (0.27-4.20)
--- NOTE | 2019-11-24 13:05 | PC.CHAP ---
Pastoral Care Encounter/Spiritual Assessment Type of Contact [] Declined extractions technologist visit [] Patient/Family/Request visit [] Outpatient visit [] Follow-up visit [] Physician referral [] Code/Alert [] Routine visit [] Staff referral [] Actively dying [x] Patient sleeping [] Family support [] [] Out of room [] Palliative care [] [] Receiving care in room [] Pre-surgical visit [] Trauma [] Long length of stay [] ICU visit [] Other: Relational/Emotional Strength [] Patient feels connected with others/family/visitors/staff [] Distress [] Loneliness/isolation [] Abandonment Spirituality of Patient [] Person of [place] [] Attends Anabaptism of their [place] [] Believes in Prayer [] Reads Bible or Roman Catholic materials [] There are Spiritual issues to be addressed Clinical Support Tech Interventions [] Prayer [] Active listening [] Non-anxious presence [] Spiritual/emotional support [] Crisis/trauma care [] Spiritual counseling [] Bereavement support [] Provided bereavement packet [] Provided Bible/devotional materials [] Provided toy/stuffed animal, coloring book to patient or family member [] Provided Communion [] Anointing/[place] [] Salvation [] Completed spiritual assessment [] Other: Impact on Illness or Injury [] Angry [] Fearful [] Anxious [] Often cries [] Exhaustion [] Unable to work [] Unable to attend gnosticism [] Unable to walk/stand [] Unable to read [] Unable to drive [] Unable to eat/drink [] Unable to sleep [] Unable to be with family [] Patient intubated [] Other: Summary The patient was sleeping. The extractions technologist prayed for him outside the door. Time spent with patient
--- NOTE | 2019-11-24 13:09 | PM.PN ---
Subjective Subjective: Interval history: History and physical reviewed. Patient is confused. He will allow exam. He did receive Haldol last night. Medications: Reviewed: Yes Vitals/I&O/Wt Last Vital Signs Temp 96.5 F L 11/23/19 15:35 Pulse 74 11/24/19 10:00 Resp 14 11/24/19 10:00 BP 94/43 11/24/19 10:00 Pulse Ox 96 11/24/19 10:00 11/23/19 11/24/19 11/24/19 22:59 06:59 14:59 Intake Total 3321.448 / 3321.448 2624.219 / 5945.667 97.578 / 97.578 Output Total 200 / 200 Balance 3321.448 / 3321.448 2424.219 / 5745.667 97.578 / 97.578 Weight last 48 hrs Weight 97.522 kg Physical Exam Narrative: EXAM NARRATIVE: General exam is a confused white male, in no distress Cardiovascular regular rate and rhythm, no murmur Lungs a few bibasilar wheezes Abdomen is soft, positive bowel sounds Extremities no cyanosis clubbing or edema. Urinary Catheter Management^: Us: Cath Placed During This Visit: no Data : 11/24/19 04:50 11/24/19 04:50 Micro: Microbiology 11/23/19 18:43 Blood Culture - Preliminary Blood SPECIMEN COLLECTED 11/23/19 18:43 Blood Culture - Preliminary Blood SPECIMEN COLLECTED 11/23/19 16:33 Blood Culture - Preliminary Blood SPECIMEN COLLECTED 11/23/19 16:38 Blood Culture - Preliminary Blood SPECIMEN COLLECTED A&P Assessment and plan (1) Septic shock due to urinary tract infection: Significant fluid boluses given as appropriate. Currently on 100 cc/h of LR. Requiring pressors. Concerned that etiology of sepsis may be UTI. He has been placed on vancomycin, and Zosyn. Renal failure complicates the ability to give large amounts of IV fluids, as this could cause severe pulmonary edema quickly. Stone and urinary bladder makes this a complicated UTI. No evidence of urinary obstruction is noted. Status: Acute Code(s): A41.9 - Sepsis, unspecified organism; R65.21 - Severe sepsis with septic shock; N39.0 - Urinary tract infection, site not specified (2) Acute renal failure superimposed on stage 2 chronic kidney disease: Has baseline chronic kidney disease stage II Nephrology on board. No indication for dialysis currently Continue to monitor creatinine closely Status: Acute Code(s): N17.9 - Acute kidney failure, unspecified; N18.2 - Chronic kidney disease, stage 2 (mild) (3) Right lower lobe lung mass: Likely malignancy. Consider work-up after acute problems have improved Status: Acute Code(s): R91.8 - Other nonspecific abnormal finding of lung field (4) Hypertension: Currently hypotensive Status: Acute Code(s): I10 - Essential (primary) hypertension (5) CAD (coronary artery disease): Status: Acute Code(s): I25.10 - Atherosclerotic heart disease of [place] coronary artery without angina pectoris (6) Aneurysm of infrarenal abdominal aorta: Status: Acute Code(s): I71.4 - Abdominal aortic aneurysm, without rupture Additional A&P Information UTI, await culture hypotension. Currently on norepinephrine Leukocytosis, secondary to sepsis Hyponatremia, secondary to renal failure Confusion. This may be secondary to some underlying dementia, and or just severe sepsis with encephalopathy. Currently on Precedex. We will try to wean off. Heparin every 12 hours for DVT prophylaxis Protonix for GI prophylaxis Attestations Medical Necessity Statement*: Needs continued hospital stay for close managing of profound renal failure. Critical Care Time: Critical care needs, electrolyte management, close monitoring of renal failure, sedation with Precedex, etc. 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
[2019-11-24] MEDS: lactated ringers 1,000 ML 100 ML IV (15:25)
[2019-11-24 18:15] LABS: Glucose Point of Care 113 mg/dL (70-110)
[2019-11-24 21:36] LABS: Glucose Point of Care 116 mg/dL (70-110)
[2019-11-25] VITALS (21 sets, daily range): BP systolic 72–120; BP diastolic 30–72; PULSE 79–120; RESP 14–25; TEMP 36.7–37; O2SAT 87–96
[2019-11-25] MEDS: lactated ringers 1,000 ML 500 ML IV (01:36)
[2019-11-25 02:27] LABS: Sodium, Urine Result 62 mmol/L
[2019-11-25 02:57] LABS: Total Volume, Urine 1700 mL
--- NOTE | 2019-11-25 03:53 | PC.NURSE ---
Dr Booker phoned this shift after patient had bowel movement in bed. Very liquidly and foul smelling. Given verbal order for C diff test. Also notified that patient is yelling that his left arm is broken, admitting H&P states multiple falls prior to admission. Unable to have patient fully extend arm. Given verbal order for xray of entire left arm.
--- NOTE | 2019-11-25 04:00 | XRR_ITS ---
PROCEDURE INFORMATION: Exam: XR Left Humerus Exam date and time: 11/25/2019 4:24 AM Age: 69 years old Clinical indication: Injury or trauma; Fall; Initial encounter; Blunt trauma (contusions or hematomas; Arm, upper; Left; Additional info: Fell at home TECHNIQUE: Imaging protocol: XR Left humerus Views: 2 or more views. COMPARISON: US SoftTissue/Extrem Lmt [id number] 07/02/2018 9:30 AM FINDINGS: Bones/joints: Proximal mid and distal aspect of the humerus is unremarkable. Small ossific densities adjacent to the lateral epicondyle. Correlate with dedicated elbow views. Soft tissues: See Bones/joints Finding. XR/[place] [id number] IMPRESSION: Proximal mid and distal aspect of the humerus is unremarkable. Small ossific densities adjacent to the lateral epicondyle. Correlate with dedicated elbow views.
--- NOTE | 2019-11-25 04:14 | XRR_ITS ---
PROCEDURE INFORMATION: Exam: XR Left Forearm Exam date and time: 11/25/2019 4:26 AM Age: 69 years old Clinical indication: Injury or trauma; Fall; Initial encounter; Blunt trauma (contusions or hematomas; Arm, lower; Left; Additional info: Fell prior to admssion TECHNIQUE: Imaging protocol: XR Left forearm. Views: 2 views. COMPARISON: [place] [id number] 11/25/2019 4:11 AM FINDINGS: Bones/joints: Ossific densities adjacent to the lateral epicondyle, lateral joint line and adjacent to the radial head. Recommend dedicated views of the elbow. Degenerative changes within the olecranon. Soft tissues: Normal. XR/XR forearm LT 2V [id number] IMPRESSION: 1. Ossific densities adjacent to the lateral epicondyle, lateral joint line and adjacent to the radial head. Recommend dedicated views of the elbow. 2. Degenerative changes within the olecranon.
[2019-11-25 04:28] LABS: Basophils % 0.1 %; Eosinophils # 0.1 10^3/uL (0.0-0.8); Eosinophils % 0.7 %; Hematocrit 30.9 % (42.0-52.0); Lymphocytes % 5.5 %; Mean Corpuscular HGB Conc 32.4 g/dL (30.0-36.0); Mean Corpuscular Hemoglobin 27.5 pg (28.0-34.0); Mean Corpuscular Volume 85.1 fL (80-94); Mean Platelet Volume 9.9 fL (7.4-10.4); Monocytes # 0.9 10^3/uL (0.2-0.9); Neutrophils % 87.7 %; Nucleated Red Blood Cells % 0 %; Platelet Count 252 10^3/cmm (130-400); Red Blood Count 3.63 10^6/uL (4.1-5.3); Red Cell Distribution Width 15.6 % (12.1-15.1); White Blood Count 18.2 10^3/uL (4.0-10.0)
[2019-11-25] MEDS: morphine 4 mg/mL SDV 1 mL 1 MG IVP (04:29)
[2019-11-25 05:07] LABS: Alanine Aminotransferase 11 U/L (0-41); Albumin Level 2.3 g/dL (3.5-5.2); Alkaline Phosphatase 61 IU/L (40-130); Anion Gap 25.5 (5-19); Aspartate Amino Transferase 31 U/L (0-40); Calcium 9.1 mg/dL (8.5-10.5); Carbon Dioxide 15 mmol/L (22-29); Chloride 101 mmol/L (98-107); Globulin 3.4 g/dL (1.3-4.6); Magnesium 2.4 mg/dL (1.7-2.3); Potassium 3.5 mmol/L (3.5-5.1); Sodium 138 mmol/L (136-145); Total Bilirubin 0.6 mg/dL (0.15-1.2); Total Protein 5.7 g/dL (6.6-8.7)
[2019-11-25 05:11] LABS: Blood Urea Nitrogen > 121 mg/dL (8-23)
[2019-11-25] MEDS: piperacillin-tazobactam 3.375 GM in sodium chloride 0.9% (plus) 50 ML IV ×2 (06:24→18:25)
[2019-11-25 07:44] LABS: Glucose Point of Care 95 mg/dL (70-110)
[2019-11-25 09:14] LABS: Glucose 94 mg/dL (65-115)
[2019-11-25] MEDS: aspirin 81 mg EC Tablet PO (09:25)
--- NOTE | 2019-11-25 10:09 | PC.CHAP ---
Pastoral Care Encounter/Spiritual Assessment Type of Contact [] Declined sales ledger clerk visit [] Patient/Family/Request visit [] Outpatient visit [] Follow-up visit [] Physician referral [] Code/Alert [] Routine visit [] Staff referral [] Actively dying [] Patient sleeping [] Family support [] [] Out of room [] Palliative care [] [] Receiving care in room [] Pre-surgical visit [] Trauma [] Long length of stay [] ICU visit [] Other: Relational/Emotional Strength [] Patient feels connected with others/family/visitors/staff [] Distress [] Loneliness/isolation [] Abandonment Spirituality of Patient [] Person of [place] [] Attends Alevism of their [place] [] Believes in Prayer [] Reads Bible or Zoroastrian materials [] There are Spiritual issues to be addressed Cardiac Nurse Specialist Interventions [] Prayer [] Active listening [] Non-anxious presence [] Spiritual/emotional support [] Crisis/trauma care [] Spiritual counseling [] Bereavement support [] Provided bereavement packet [] Provided Bible/devotional materials [] Provided toy/stuffed animal, coloring book to patient or family member [] Provided Communion [] Anointing/[place] [] Salvation [] Completed spiritual assessment [] Other: Impact on Illness or Injury [] Angry [] Fearful [] Anxious [] Often cries [] Exhaustion [] Unable to work [] Unable to attend hoahaoism [] Unable to walk/stand [] Unable to read [] Unable to drive [] Unable to eat/drink [] Unable to sleep [] Unable to be with family [] Patient intubated [] Other: Summary The patient was sleeping. The caplain prayed for the patient outside the door. Time spent with patient 6 min.
[2019-11-25] MEDS: pantoprazole 40 mg SDV IVP (11:22)
[2019-11-25] MEDS: heparin 5,000 unit/mL INJ 1 mL 5000 UNIT SUBCUT ×2 (11:22→23:17)
[2019-11-25] MEDS: vancomycin 500 MG in sodium chloride 0.9% (plus) 100 ML 100 MG IV (11:22)
[2019-11-25] MEDS: lactated ringers 1,000 ML 100 ML IV (11:25)
[2019-11-25 11:29] LABS: Glucose Point of Care 95 mg/dL (70-110)
--- NOTE | 2019-11-25 13:00 | P.PN_ITS ---
Subjective Subjective: Interval history: Corbin reports he is feeling okay. Nurses relate he has not been agitated this morning. He denies any specific complaints. He cannot remember arriving at the hospital. Medications: Reviewed: Yes Vitals/I&O/Wt Last Vital Signs Temp 98.2 F 11/25/19 10:00 Pulse 95 11/25/19 12:00 Resp 17 11/25/19 12:00 BP 100/43 11/25/19 12:00 Pulse Ox 96 11/25/19 12:00 11/24/19 11/25/19 11/25/19 22:59 06:59 14:59 Intake Total 262.968 / 6104.905 9091.667 / 2727.009 658.333 / 658.333 Output Total 1999 Balance 262.968 / 285.342 -458.333 / -172.991 658.333 / 658.333 Weight last 48 hrs Weight 97.522 kg Physical Exam Narrative: EXAM NARRATIVE: General exam is a confused white male, in no distress Cardiovascular regular rate and rhythm, no murmur Lungs clear without wheezing Abdomen is soft, positive bowel sounds Extremities no cyanosis clubbing or edema. Urinary Catheter Management^: Us: Cath Placed During This Visit: yes Urethral Indwelling: Yes Reason for Continuing Indwelling Catheter: Accurate Measurement of Urinary Output in Critically Ill Patients Urinary Catheter Date of Insertion: 11/23/19 Urinary Catheter Time of Insertion: 23:05 Data : 11/25/19 03:45 11/25/19 03:45 Micro: Microbiology 11/25/19 00:02 C.difficile Toxin B Gene (PCR) - Final Stool 11/23/19 18:07 Urine Culture - Final Urine Catheterized 11/23/19 18:43 Blood Culture - Preliminary Blood NEGATIVE TO DATE 11/23/19 18:43 Blood Culture - Preliminary Blood NEGATIVE TO DATE 11/23/19 16:38 Blood Culture - Preliminary Blood NEGATIVE TO DATE 11/23/19 16:33 Blood Culture - Preliminary Blood NEGATIVE TO DATE A&P Assessment and plan (1) Septic shock due to urinary tract infection: Significant fluid boluses given as appropriate initially. Norepinephrine has been able to be weaned off overnight Placed on vancomycin, Zosyn on admission secondary to concern of sepsis Stone and urinary bladder makes this a complicated UTI. No evidence of urinary obstruction is noted. Status: Acute Code(s): A41.9 - Sepsis, unspecified organism; R65.21 - Severe sepsis with septic shock; N39.0 - Urinary tract infection, site not specified (2) Acute renal failure superimposed on stage 2 chronic kidney disease: Has baseline chronic kidney disease stage II Nephrology on board. No indication for dialysis currently Creatinine continues to improve No obstruction noted on CT abdomen and pelvis Status: Acute Code(s): N17.9 - Acute kidney failure, unspecified; N18.2 - Chronic kidney disease, stage 2 (mild) (3) Right lower lobe lung mass: Likely malignancy. Consider work-up after acute problems have improved Status: Acute Code(s): R91.8 - Other nonspecific abnormal finding of lung field (4) Hypertension: Currently hypotensive. Holding all patients antihypertensives Status: Acute Code(s): I10 - Essential (primary) hypertension (5) CAD (coronary artery disease): Holding Plavix currently. No stent in the last year. If he improves may need procedure to delineate lung mass Status: Acute Code(s): I25.10 - Atherosclerotic heart disease of [place] coronary artery without angina pectoris (6) Aneurysm of infrarenal abdominal aorta: Status: Acute Code(s): I71.4 - Abdominal aortic aneurysm, without rupture Additional A&P Information UTI, await culture. Currently negative. hypotension. He is now off norepinephrine Leukocytosis, secondary to sepsis. On vancomycin, Zosyn Hyponatremia, secondary to renal failure Confusion. This may be secondary to some underlying dementia, and or just severe sepsis with encephalopathy. Required Precedex initially secondary to agitation. This is been weaned off and he appears improved. Heparin every 12 hours for DVT prophylaxis Protonix for GI prophylaxis Attestations Medical Necessity Statement*: Needs continued hospital stay for close monitoring secondary to severe acute renal failure. Coding Level of Care Code Acute Electron Beam Photo Mask Maker for [facility] Fwd Diagnoses Septic shock due to urinary tract infection A41.9; R65.21; N39.0 Acute renal failure superimposed on stage 2 chronic kidney disease N17.9; N18.2 Right lower lobe lung mass R91.8 Hypertension I10 CAD (coronary artery disease) I25.10 Aneurysm of infrarenal abdominal aorta I71.4
--- NOTE | 2019-11-25 13:33 | P.PN_ITS ---
Subjective Subjective: Interval history: Feels better today. No new issues. Making a good amount of urine. No uremic Sx. Less confused since yesterday. No edema and no other uremic Sx. Vitals/I&O/Wt Last Vital Signs Temp 98.2 F 11/25/19 10:00 Pulse 95 11/25/19 12:00 Resp 17 11/25/19 12:00 BP 100/43 11/25/19 12:00 Pulse Ox 96 11/25/19 12:00 11/24/19 11/25/19 11/25/19 22:59 06:59 14:59 Intake Total 262.968 / 6970.873 6624.667 / 2727.009 658.333 / 658.333 Output Total 1999 Balance 262.968 / 285.342 -458.333 / -172.991 658.333 / 658.333 Weight last 48 hrs Weight 97.522 kg Physical Exam Const: COMMON NORMALS: no apparent distress and average body habitus HENMT: COMMON NORMALS: normocephalic and head/scalp atraumatic HEAD & SCALP: normocephalic and atraumatic Neck/C-Spine: COMMON NORMALS: no JVD Chest: COMMONS NORMALS: inspection of chest normal and palpation of chest normal Cardio: COMMON NORMALS: no JVD, regular rate, S1 normal heart sound and S2 normal heart sound RATE: regular rate HEART SOUNDS: S1 normal and S2 normal Extremity: COMMON NORMALS: normal to inspection and full ROM Urinary Catheter Management^: Us: Cath Placed During This Visit: yes Urethral Indwelling: Yes Reason for Continuing Indwelling Catheter: Accurate Measurement of Urinary Output in Critically Ill Patients Urinary Catheter Date of Insertion: 11/23/19 Urinary Catheter Time of Insertion: 23:05 Data : 11/25/19 03:45 11/25/19 03:45 Micro: Microbiology 11/25/19 00:02 C.difficile Toxin B Gene (PCR) - Final Stool 11/23/19 18:07 Urine Culture - Final Urine Catheterized 11/23/19 18:43 Blood Culture - Preliminary Blood NEGATIVE TO DATE 11/23/19 18:43 Blood Culture - Preliminary Blood NEGATIVE TO DATE 11/23/19 16:38 Blood Culture - Preliminary Blood NEGATIVE TO DATE 11/23/19 16:33 Blood Culture - Preliminary Blood NEGATIVE TO DATE A&P Additional A&P Information 1. Renal failure on the face of things this appears to be prerenal azotemia, although quite a profound case. Lisinopril likely to have compounded the issue underlying renal vascular disease also evident making more vulnerable to prerenal insult. No evidence of obstructive uropathy. Creatinine is down trending cont ivf therapy Strict ins and outs 2. Lung mass ongoing work up and management for this., At the end of the day he really dep ends upon what Corbin wants to do. He may not take a proactive approach, but a more palliative approach. 3. Leukocytosis infection versus reactivity. Cultures pending, coupled broad-spectrum antibiot ics. Interview and evaluation for invited telemedicine. The case was discussed at length with ICU RNs at bedside Attestations Medical Necessity Statement*: eval for renal failure Coding Level of Care Code Acute Aircraft Maintenance Technician for Jayla Piña
[2019-11-25] MEDS: pantoprazole DR 40 mg Tablet PO (18:24)
[2019-11-25 18:46] LABS: Glucose Point of Care 99 mg/dL (70-110)
[2019-11-25 21:23] LABS: Glucose Point of Care 112 mg/dL (70-110)
[2019-11-25 23:10] LABS: Urine Creatinine 52 mg/dL (39-259); Urine Protein Random 11 mg/dL
[2019-11-26] VITALS (24 sets, daily range): BP systolic 84–145; BP diastolic 47–98; PULSE 89–133; RESP 13–30; TEMP 36.4–37; O2SAT 90–97
--- NOTE | 2019-11-26 03:12 | PC.NURSE ---
patient refuses to move off of left side explained that he has a red spot that is starting to become open but patient continues being verbally abusive and refuses to turn to any other side. placed a meplix dressing over area and keeps encouraging to move off of the side but to no avail. will continue to monitor.
[2019-11-26] MEDS: lactated ringers 1,000 ML 100 ML IV ×2 (03:20→20:17)
[2019-11-26 04:48] LABS: Basophils % 0.2 %; Eosinophils # 0.1 10^3/uL (0.0-0.8); Eosinophils % 0.5 %; Hematocrit 35.9 % (42.0-52.0); Hemoglobin 11.7 g/dL (11.7-16.6); Lymphocytes # 1.1 10^3/uL (0.8-4.8); Lymphocytes % 5.4 %; Mean Corpuscular HGB Conc 32.6 g/dL (30.0-36.0); Mean Corpuscular Hemoglobin 27.6 pg (28.0-34.0); Mean Corpuscular Volume 84.7 fL (80-94); Mean Platelet Volume 9.6 fL (7.4-10.4); Monocytes # 1.1 10^3/uL (0.2-0.9); Monocytes % 5.7 %; Neutrophils # 17.5 10^3/uL (1.8-7.7); Neutrophils % 87.3 %; Nucleated Red Blood Cells % 0 %; Platelet Count 309 10^3/cmm (130-400); Red Blood Count 4.24 10^6/uL (4.1-5.3); Red Cell Distribution Width 16.2 % (12.1-15.1)
[2019-11-26 05:06] LABS: Alanine Aminotransferase 12 U/L (0-41); Albumin Level 2.5 g/dL (3.5-5.2); Alkaline Phosphatase 69 IU/L (40-130); Anion Gap 23.3 (5-19); Aspartate Amino Transferase 29 U/L (0-40); Calcium 9.5 mg/dL (8.5-10.5); Carbon Dioxide 16 mmol/L (22-29); Chloride 108 mmol/L (98-107); Globulin 3.4 g/dL (1.3-4.6); Glucose 140 mg/dL (65-115); Magnesium 2.3 mg/dL (1.7-2.3); Phosphorus 4.1 mg/dL (2.5-4.5); Potassium 3.3 mmol/L (3.5-5.1); Sodium 144 mmol/L (136-145); Total Bilirubin 0.7 mg/dL (0.15-1.2); Total Protein 5.9 g/dL (6.6-8.7)
[2019-11-26 05:14] LABS: Blood Urea Nitrogen 102 mg/dL (8-23)
--- NOTE | 2019-11-26 06:43 | PC.NURSE ---
patient continues to refuse to turn off of his left side meplix applied to reddened area continues to educate patient the need to turn but patient refuses to listen and is still cussing and being inappropriate with staff.
[2019-11-26] MEDS: piperacillin-tazobactam 3.375 GM in sodium chloride 0.9% (plus) 50 ML IV ×2 (07:58→19:46)
[2019-11-26] MEDS: pantoprazole DR 40 mg Tablet PO ×2 (08:01→17:25)
[2019-11-26] MEDS: aspirin 81 mg EC Tablet PO (08:01)
--- NOTE | 2019-11-26 08:42 | XR_ITS ---
WS: [id number] Left elbow, 3 views, 11/26/2019 Clinical Data: ossific densities lateral epicondyle Comparison: Left forearm, 11/25/2019 Findings: No fractures or dislocations are seen. The radial head is normal. The soft tissues are unremarkable. Small calcifications in the soft tissue of the lateral elbow joint space probably represent synovial calcifications from a chronic rather than an acute injury. XR/XR elbow LT min 3V* [id number] Impression: 1. Negative for left elbow fracture. 2. Probable synovial calcifications from an old injury of the lateral joint spa ce of the left elbow.
--- NOTE | 2019-11-26 08:55 | PC.SOCIAL ---
IMM Page 2 of [facility] explained to patient's spouse over the phone as patient is currently receiving nursing care. Spouse verbalizes understanding. Initialed, dated, and timed and placed in chart. Copy provided to patient.
[2019-11-26 11:11] LABS: Glucose Point of Care 136 mg/dL (70-110)
[2019-11-26] MEDS: heparin 5,000 unit/mL INJ 1 mL 5000 UNIT SUBCUT ×2 (11:15→22:13)
--- NOTE | 2019-11-26 11:17 | P.PN_ITS ---
Subjective Subjective: Interval history: This morning she is irritable about having just fallen asleep and being woken up again. States that he is not doing very well, when asked to elaborate why replies because I'm old . Denies that CT results have been discussed with him so far. Verbalized understanding regarding finding of right lower lobe mass and lymph nodes in the chest concerning for possible malignancy. He states that he would be agreeable for biopsy and treatment in case this was cancer. Vitals/I&O/Wt Last Vital Signs Temp 98.6 F 11/26/19 00:00 Pulse 102 H 11/26/19 09:00 Resp 21 H 11/26/19 09:00 BP 116/67 11/26/19 10:00 Pulse Ox 97 11/26/19 09:00 11/25/19 11/26/19 11/26/19 22:59 06:59 14:59 Intake Total 1170 / 1828.333 86.893 / 1915.226 240 / 240 Output Total 1999 1400 / 3400 Balance -830 / -171.667 -1313.107 / -1484.774 240 / 240 Physical Exam Const: COMMON NORMALS: no apparent distress OTHER: Irritable mood. HENMT: COMMON NORMALS: oropharynx normal Neck/C-Spine: COMMON NORMALS: no JVD Resp: COMMON NORMALS: normal respiratory effort and clear to auscultation bilaterally AUSCULTATION: clear to auscultation bilaterally Cardio: COMMON NORMALS: no JVD, regular rhythm, S1 normal heart sound, S2 normal heart sound and no murmurs RHYTHM: regular rhythm HEART SOUNDS: S1 normal and S2 normal GI: COMMON NORMALS: normal to inspection, nondistended, normoactive bowel sounds, soft to palpation and non-tender PALPATION: Yes soft Extremity: COMMON NORMALS: no joint enlargement and no pedal edema Neuro: COMMON NORMALS: moves all extremities Skin: COMMON NORMALS: no rashes or lesions noted GENERAL SKIN EXAM: no rashes or lesions noted Urinary Catheter Management^: Us: Cath Placed During This Visit: yes Urethral Indwelling: Yes Reason for Continuing Indwelling Catheter: Accurate Measurement of Urinary Output in Critically Ill Patients Urinary Catheter Date of Insertion: 11/23/19 Urinary Catheter Time of Insertion: 23:05 Data : 11/26/19 04:25 11/26/19 04:25 Micro: Microbiology 11/25/19 00:02 C.difficile Toxin B Gene (PCR) - Final Stool 11/23/19 18:07 Urine Culture - Final Urine Catheterized A&P Assessment and plan (1) Septic shock due to urinary tract infection: Septic shock resolving. She was still requiring norepinephrine at 2 MCG this morning. Weaned off around 8 AM. Currently blood pressure is holding. He is having some persistent sinus tachycardia. Leukocytosis. He is on room air. Does not have cough or respiratory complaints. Urine culture unrevealing. Continues on Zosyn. Vancomycin. Will check MRSA PCR. Complicated UTI with bladder stone, ureteral calcification. No evidence of urinary obstruction is noted. Status: Acute Code(s): A41.9 - Sepsis, unspecified organism; R65.21 - Severe sepsis with septic shock; N39.0 - Urinary tract infection, site not specified (2) Acute renal failure superimposed on stage 2 chronic kidney disease: Creatinine gradually improving. BUN trending down. Still over 100. Lisinopril on hold. Maintain blood pressure, avoid hypotension. Baseline chronic kidney disease stage II Appreciate nephrology recommendations. No obstruction noted on CT abdomen and pelvis Status: Acute Code(s): N17.9 - Acute kidney failure, unspecified; N18.2 - Chronic kidney disease, stage 2 (mild) (3) Right lower lobe lung mass: Likely malignancy. Plavix have been on hold for biopsy. Appreciate pulmonology assessment regarding mass and lymph node biopsy. Status: Acute Code(s): R91.8 - Other nonspecific abnormal finding of lung field (4) Hypertension: Currently hypotensive. Holding all patients antihypertensives Status: Acute Code(s): I10 - Essential (primary) hypertension (5) CAD (coronary artery disease): Plavix on hold. Continues on low-dose aspirin. Status: Acute Code(s): I25.10 - Atherosclerotic heart disease of [place] coronary artery without angina pectoris (6) Aneurysm of infrarenal abdominal aorta: With mild enlargement, will need follow-up imaging. Status: Acute Code(s): I71.4 - Abdominal aortic aneurysm, without rupture Additional A&P Information UTI, as above Hypotension. Improving, although episodically blood pressure still soft. Monitor volume status as LR infusions are ordered, followed by nephrology. Avoid fluid overload. Leukocytosis, secondary to sepsis. On vancomycin, Zosyn Hyponatremia, resolved Metabolic acidosis: Secondary to acute kidney injury, with gradual improvement Hyperphosphatemia: Improving Confusion. This may be secondary to some underlying dementia, and or just severe sepsis with encephalopathy. He is awake and alert today. Irritable mood. Appears to have understanding of current condition when it is discussed with him, although was not aware of either finding of mass or kidney injury. Currently without agitation. Required Precedex initially secondary to agitation. Continue to monitor. Attestations Medical Necessity Statement*: Continue admission for assessment management of acute kidney, UTI with suspected sepsis and septic shock, right lung mass. Coding Level of Care Code Acute Mine Supervisor for [facility] Fwd Diagnoses Septic shock due to urinary tract infection A41.9; R65.21; N39.0 Acute renal failure superimposed on stage 2 chronic kidney disease N17.9; N18.2 Right lower lobe lung mass R91.8 Hypertension I10 CAD (coronary artery disease) I25.10 Aneurysm of infrarenal abdominal aorta I71.4
[2019-11-26] MEDS: vancomycin 1,000 MG in sodium chloride 0.9% 250 ML 250 MG IV (14:54)
--- NOTE | 2019-11-26 17:02 | PM.PN ---
Subjective Subjective: Interval history: No new issues for me, remains irritable. No edema, SOB, no other volume assoc Sx. Passing urine comfortably. Medications: Reviewed: Yes Vitals/I&O/Wt Last Vital Signs Temp 98.2 F 11/26/19 15:00 Pulse 100 11/26/19 16:00 Resp 21 H 11/26/19 16:00 BP 96/63 11/26/19 14:00 Pulse Ox 92 11/26/19 11:00 11/26/19 11/26/19 11/26/19 06:59 14:59 22:59 Intake Total 86.893 / 1915.226 600 / 600 Output Total 1400 / 3400 600 / 600 Balance -1313.107 / -1484.774 600 / 600 -600 / 0 Physical Exam Const: COMMON NORMALS: no apparent distress and average body habitus HENMT: COMMON NORMALS: normocephalic and head/scalp atraumatic HEAD & SCALP: normocephalic and atraumatic Neck/C-Spine: COMMON NORMALS: no JVD Chest: COMMONS NORMALS: inspection of chest normal and palpation of chest normal Cardio: COMMON NORMALS: no JVD, regular rate, S1 normal heart sound and S2 normal heart sound RATE: regular rate HEART SOUNDS: S1 normal and S2 normal Extremity: COMMON NORMALS: normal to inspection and full ROM Urinary Catheter Management^: Us: Cath Placed During This Visit: yes Urethral Indwelling: Yes Reason for Continuing Indwelling Catheter: Accurate Measurement of Urinary Output in Critically Ill Patients Urinary Catheter Date of Insertion: 11/23/19 Urinary Catheter Time of Insertion: 23:05 Data : 11/26/19 04:25 11/26/19 04:25 A&P Additional A&P Information 1. Renal failure on the face of things this appears to be prerenal azotemia, although quite a profound case. Lisinopril likely to have compounded the issue underlying renal vascular disease also evident making more vulnerable to prerenal insult. No evidence of obstructive uropathy. Creatinine is down trending ok to stop ivf at this time Strict ins and outs 2. Lung mass ongoing work up and management for this., At the end of the day he really depends upon what Corbin wants to do. He may not take a proactive approach, but a more palliative approach, happy to have a biopsy and he is waiting for supervisor looping 3. Leukocytosis infection versus reactivity. Cultures pending, coupled broad-spectrum antibiotics. Interview and evaluation for invited telemedicine. The case was discussed at length with ICU RNs at bedside renal issues now resolving, will sign off at this time, thanks Attestations Medical Necessity Statement*: eval for renal failure Coding Level of Care Code Acute Manager Application Development for Jayla Piña
[2019-11-26 17:48] LABS: Glucose Point of Care 174 mg/dL (70-110)
[2019-11-26 17:49] LABS: Glucose Point of Care 124 mg/dL (70-110)
[2019-11-26] MEDS: loperamide 2 mg Capsule 4 MG PO (21:34)
[2019-11-27] VITALS (19 sets, daily range): BP systolic 103–156; BP diastolic 60–74; PULSE 76–111; RESP 13–26; TEMP 36.4–36.7; O2SAT 93–97
[2019-11-27 00:08] LABS: Glucose Point of Care 174 mg/dL (70-110)
[2019-11-27] MEDS: lactated ringers 1,000 ML 100 ML IV (06:14)
[2019-11-27] MEDS: piperacillin-tazobactam 3.375 GM in sodium chloride 0.9% (plus) 50 ML IV ×2 (06:15→17:37)
[2019-11-27 06:17] LABS: Basophils % 0.2 %; Eosinophils # 0.4 10^3/uL (0.0-0.8); Hematocrit 29.1 % (42.0-52.0); Hemoglobin 9.2 g/dL (11.7-16.6); Lymphocytes # 1.1 10^3/uL (0.8-4.8); Lymphocytes % 7.5 %; Mean Corpuscular HGB Conc 31.6 g/dL (30.0-36.0); Mean Corpuscular Hemoglobin 27.5 pg (28.0-34.0); Mean Corpuscular Volume 86.9 fL (80-94); Mean Platelet Volume 10.2 fL (7.4-10.4); Monocytes # 0.8 10^3/uL (0.2-0.9); Monocytes % 5.4 %; Neutrophils # 11.7 10^3/uL (1.8-7.7); Neutrophils % 82.6 %; Nucleated Red Blood Cells % 0 %; Platelet Count 243 10^3/cmm (130-400); Red Blood Count 3.35 10^6/uL (4.1-5.3); Red Cell Distribution Width 15.9 % (12.1-15.1); White Blood Count 14.2 10^3/uL (4.0-10.0)
[2019-11-27 06:32] LABS: Alanine Aminotransferase 10 U/L (0-41); Albumin Level 2.1 g/dL (3.5-5.2); Alkaline Phosphatase 56 IU/L (40-130); Anion Gap 15.9 (5-19); Aspartate Amino Transferase 24 U/L (0-40); Blood Urea Nitrogen 64 mg/dL (8-23); Calcium 8.3 mg/dL (8.5-10.5); Carbon Dioxide 19 mmol/L (22-29); Chloride 106 mmol/L (98-107); Globulin 2.9 g/dL (1.3-4.6); Glucose 123 mg/dL (65-115); Potassium 2.9 mmol/L (3.5-5.1); Sodium 138 mmol/L (136-145); Total Bilirubin 0.6 mg/dL (0.15-1.2)
[2019-11-27 09:00] LABS: Glucose Point of Care 118 mg/dL (70-110)
[2019-11-27] MEDS: pantoprazole DR 40 mg Tablet PO ×2 (10:29→17:40)
[2019-11-27] MEDS: heparin 5,000 unit/mL INJ 1 mL 5000 UNIT SUBCUT ×2 (10:29→23:47)
[2019-11-27] MEDS: loperamide 2 mg Capsule 4 MG PO (10:30)
[2019-11-27] MEDS: aspirin 81 mg EC Tablet PO (10:30)
--- NOTE | 2019-11-27 11:05 | P.PN_ITS ---
Subjective Subjective: Interval history: He is awake and alert, responsive. When asked how he is feeling states not well . When asked why replies because I just woke up . Denies any trouble breathing. Denies any chest pain. His is accompanying him at bedside. She says that his mental status is closer to his usual self. She says she got worried that something was unwell because he normally smokes 3 packs/day, however, prior to coming the hospital he had stopped smoking. She reports that he has been having memory issues, and states that a physician had told them previously that it was likely secondary to alcohol intake and smoking, however, she also says that she had found some square-shaped tablets of drugs on him and is sure that him taking those drugs were responsible for his cognitive decline. Vitals/I&O/Wt Last Vital Signs Temp 97.6 F 11/27/19 08:00 Pulse 92 11/27/19 10:00 Resp 13 11/27/19 10:00 BP 118/70 11/27/19 10:00 Pulse Ox 94 11/27/19 07:42 11/26/19 11/27/19 11/27/19 22:59 06:59 14:59 Intake Total 300 / 1900 1795 / 3695 240 / 240 Output Total 1250 / 1250 1025 / 2275 Balance -950 / 650 770 / 1420 240 / 240 Physical Exam Const: COMMON NORMALS: no apparent distress OTHER: Irritable mood. HENMT: COMMON NORMALS: oropharynx normal Neck/C-Spine: COMMON NORMALS: no JVD Resp: COMMON NORMALS: normal respiratory effort and clear to auscultation bilaterally AUSCULTATION: clear to auscultation bilaterally Cardio: COMMON NORMALS: no JVD, regular rhythm, S1 normal heart sound, S2 normal heart sound and no murmurs RHYTHM: regular rhythm HEART SOUNDS: S1 normal and S2 normal GI: COMMON NORMALS: normal to inspection, nondistended, normoactive bowel sounds, soft to palpation and non-tender PALPATION: Yes soft Extremity: COMMON NORMALS: no joint enlargement and no pedal edema Neuro: COMMON NORMALS: moves all extremities Skin: COMMON NORMALS: no rashes or lesions noted GENERAL SKIN EXAM: no rashes or lesions noted Urinary Catheter Management^: Us: Cath Placed During This Visit: yes Urethral Indwelling: Yes Reason for Continuing Indwelling Catheter: Accurate Measurement of Urinary Output in Critically Ill Patients Urinary Catheter Date of Insertion: 11/23/19 Urinary Catheter Time of Insertion: 23:05 Data : 11/27/19 05:25 11/27/19 05:25 A&P Assessment and plan (1) Septic shock due to urinary tract infection: Septic shock resolved. Blood pressure has been stable. He has not required any further pressors. Will continue care on medical floor. Urine culture unrevealing. Continues on Zosyn. Vancomycin. MRSA PCR ordered. Complicated UTI with bladder stone, ureteral calcification. No evidence of urin lesli obstruction is noted. Status: Acute Code(s): A41.9 - Sepsis, unspecified organism; R65.21 - Severe sepsis with septic shock; N39.0 - Urinary tract infection, site not specified (2) Acute renal failure superimposed on stage 2 chronic kidney disease: Creatinine gradually improving. Lisinopril on hold. Baseline chronic kidney disease stage II Appreciate nephrology recommendations. No obstruction noted on CT abdomen and pelvis Status: Acute Code(s): N17.9 - Acute kidney failure, unspecified; N18.2 - Chronic kidney disease, stage 2 (mild) (3) Right lower lobe lung mass: Likely malignancy. Plavix have been on hold for biopsy. Discussed with pulmonology and he could undergo bronchoscopy with biopsy. Unfortunately it appears he does not have insight into his condition. He does not remember our discussion from yesterday. His dementia unfortunately appears to be fairly advanced. His states he is currently close to his baseline mental status and functioning, although he knows he is in most planes, he does not know the location he is at and seeing his around thinks that he may be at home. He is not remember the year. His states his memory issues had been getting worse recently. Discussing with her regarding finding on CT scan of suspected malignancy which may be in fairly advanced stage, and the fact that he unfortunately may not be able to make his own decisions regarding care, she prefers to address the issue again with his primary care provider at [facility] who may know him better. She understands that this may create additional delay in obtaining the diagnosis. When asked if she had any additional questions she did not at this time. Status: Acute Code(s): R91.8 - Other nonspecific abnormal finding of lung field (4) Hypertension: Currently hypotensive. Holding all patients antihypertensives Status: Acute Code(s): I10 - Essential (primary) hypertension (5) CAD (coronary artery disease): Plavix on hold. Continues on low-dose aspirin. Status: Acute Code(s): I25.10 - Atherosclerotic heart disease of [place] coronary artery without angina pectoris (6) Aneurysm of infrarenal abdominal aorta: With mild enlargement, will need follow-up imaging. Status: Acute Code(s): I71.4 - Abdominal aortic aneurysm, without rupture Additional A&P Information UTI, as above Hypotension. Improving, although episodically blood pressure still soft. Monitor volume status as LR infusions are ordered, followed by nephrology. Avoid fluid overload. Leukocytosis, secondary to sepsis. On vancomycin, Zosyn Hyponatremia, resolved Metabolic acidosis: Secondary to acute kidney injury, with gradual improvement Hyperphosphatemia: Improving Confusion. Suspected acute encephalopathy secondary to urinary tract infection superimposed on chronic dementia. With episodes of inappropriate behavior towards nursing staff reported. Dementia may be multifactorial secondary to chronic alcohol intake, his reports he is to drink heavily, he would drink a beer, and trazodone by vodka , but may be also secondary to later drug use which she states she found out about when she found different colored square tablets in his clothes. She feels he has improved in terms of his encephalopathy and is closer to his baseline functioning currently. Continue one-to-one sitter for now as he tends to try to get out of bed and walk out. Will reassess his mental status tomorrow with continued treatment. Poor oral intake: He has difficulties with some foods due to absent dentition, although even with soft diet his appetite has not been good. Will try to add some protein shakes to his meals. Attestations Medical Necessity Statement*: Continue admission for assessment management of complicated urinary tract infection, monitor blood pressure on medical floor, monitor for further improvement in mental status, disposition arrangements. Coding Level of Care Code Acute Felter [employer] for Jayla Piña Diagnoses Septic shock due to urinary tract infection A41.9; R65.21; N39.0 Acute renal failure superimposed on stage 2 chronic kidney disease N17.9; N18.2 Right lower lobe lung mass R91.8 Hypertension I10 CAD (coronary artery disease) I25.10 Aneurysm of infrarenal abdominal aorta I71.4
[2019-11-27] MEDS: lanolin oint 7 gm 1 APPLIC TOPICAL (11:18)
[2019-11-27 11:23] LABS: Glucose Point of Care 120 mg/dL (70-110)
[2019-11-27] MEDS: morphine 4 mg/mL SDV 1 mL 1 MG IVP (11:49)
--- NOTE | 2019-11-27 13:34 | PC.NURSE ---
TRANSFER TO FLOOR Report called to [facility]. Patient transferred via wheelchair by nurse. 1:1 sitter present. at bedside. All belongings sent with patient.
--- NOTE | 2019-11-27 13:35 | PC.NURSE ---
recieved pt from ICU. pt is alert and oriented x 3. pt's and sitter is at bedside. continue to monitor pt
[2019-11-27 17:25] LABS: Glucose Point of Care 131 mg/dL (70-110)
[2019-11-27 22:15] LABS: Glucose Point of Care 144 mg/dL (70-110)
[2019-11-28] VITALS (10 sets, daily range): BP systolic 105–159; BP diastolic 69–78; PULSE 75–100; RESP 16–24; TEMP 36.6–36.9; O2SAT 92–97
[2019-11-28] MEDS: haloperidol inj 5 mg/mL INJ 1 mL 1 MG IM (05:25)
[2019-11-28] MEDS: piperacillin-tazobactam 3.375 GM in sodium chloride 0.9% (plus) 50 ML IV (06:17)
[2019-11-28 06:18] LABS: Basophils # 0.1 10^3/uL (0.0-0.1); Basophils % 0.3 %; Eosinophils # 0.4 10^3/uL (0.0-0.8); Eosinophils % 2.3 %; Hematocrit 31.1 % (42.0-52.0); Hemoglobin 9.9 g/dL (11.7-16.6); Lymphocytes # 1.3 10^3/uL (0.8-4.8); Lymphocytes % 8.3 %; Mean Corpuscular HGB Conc 31.8 g/dL (30.0-36.0); Mean Corpuscular Volume 84.7 fL (80-94); Monocytes # 0.8 10^3/uL (0.2-0.9); Monocytes % 5.2 %; Neutrophils # 12.9 10^3/uL (1.8-7.7); Neutrophils % 82.8 %; Nucleated Red Blood Cells % 0 %; Platelet Count 215 10^3/cmm (130-400); Red Blood Count 3.67 10^6/uL (4.1-5.3); Red Cell Distribution Width 16.4 % (12.1-15.1); White Blood Count 15.6 10^3/uL (4.0-10.0)
[2019-11-28 06:43] LABS: Alanine Aminotransferase 12 U/L (0-41); Albumin Level 2.7 g/dL (3.5-5.2); Alkaline Phosphatase 66 IU/L (40-130); Anion Gap 17.4 (5-19); Aspartate Amino Transferase 22 U/L (0-40); Blood Urea Nitrogen 52 mg/dL (8-23); Calcium 9.1 mg/dL (8.5-10.5); Carbon Dioxide 21 mmol/L (22-29); Chloride 103 mmol/L (98-107); Globulin 3.4 g/dL (1.3-4.6); Glucose 123 mg/dL (65-115); Potassium 3.4 mmol/L (3.5-5.1); Sodium 138 mmol/L (136-145); Total Bilirubin 0.6 mg/dL (0.15-1.2); Total Protein 6.1 g/dL (6.6-8.7)
[2019-11-28 07:56] LABS: Glucose Point of Care 109 mg/dL (70-110)
--- NOTE | 2019-11-28 08:15 | PC.NURSE ---
the patient refused to let me get his temperature.
[2019-11-28] MEDS: aspirin 81 mg EC Tablet PO (10:09)
[2019-11-28] MEDS: pantoprazole DR 40 mg Tablet PO (10:10)
[2019-11-28] MEDS: lactated ringers 1,000 ML 100 ML IV (10:10)
[2019-11-28 12:27] LABS: Glucose Point of Care 122 mg/dL (70-110)
[2019-11-28] MEDS: heparin 5,000 unit/mL INJ 1 mL 5000 UNIT SUBCUT (12:42)
[2019-11-28 14:30] LABS: Vancomycin Trough 20.6 ug/mL (10-15)
--- NOTE | 2019-11-28 14:56 | PC.NURSE ---
VELA CATHETER REMOVED AT 1450, PT TOLERATED WELL.
--- NOTE | 2019-11-28 15:00 | PC.SOCIAL ---
[facility] Page 2 of [facility] explained to patient's spouse, Krysten over the phone. She verbalizes understanding. Initialed, dated, and timed and placed in chart. Copy provided to patient.
[2019-11-28 16:46] LABS: Glucose Point of Care 127 mg/dL (70-110)
--- NOTE | 2019-11-28 16:50 | PC.NURSE ---
patients came to pick patient up, discharge instructions were reviewed with her d/t patient being unable to understand. Prescriptions were printed off and given to patient's who stated she would have them filled. central line discontinued from R neck, patient tolerated well.
--- NOTE | 2019-11-28 18:07 | PM.DCS ---
Discharge Providers Date of Admission: 11/23/19 22:25 Date of Discharge: Date of Discharge: November 28, 2019 Attending Provider at Admission: Rolando Booker MD Attending Provider at Discharge: Mark Bradford Primary Care Provider: Wally Franco Diagnoses at Discharge Discharge Diagnosis (1) Septic shock due to urinary tract infection: Status: Acute (2) Acute renal failure superimposed on stage 2 chronic kidney disease: Status: Acute (3) Right lower lobe lung mass: Status: Acute (4) Hypertension: Status: Acute (5) CAD (coronary artery disease): Status: Acute (6) Aneurysm of infrarenal abdominal aorta: Status: Acute Reason for Visit Reason for Visit: Reason For Visit: ACUTE KITNEY INJURY, SEPTIC SHOCK, UTI Hospital Course Hospital Course: 69-year-old gentleman with history of dementia, COPD, currently disease stage II, infrarenal AAA, CAD status post stenting x3, HTN, HLD, urolithiasis and pyelonephritis was admitted due to fatigue, poor appetite, and acute encephalopathy superimposed on chronic dementia. On presentation found to be in septic shock, hypotensive requiring pressor support, was treated with IV antibiotics for urinary source of infection with complicated UTI, with renal collecting system calcifications, urinary bladder stone, without signs of obstruction. Septic shock resolved. He was continued on Zosyn, and will complete the course with 1 more day of ciprofloxacin. Urine culture unfortunately unrevealing. Severe acute kidney injury superimposed on chronic kidney disease on presentation. Was assessed by nephrology. With creatinine initially 9.6, however, with resolution of septic shock, stabilization of blood pressures, fluid challenge, creatinine continue to improve, currently down to 2. On presentation incidentally noted to have mild increase in size of AAA, which will need to be followed up. Also incidentally noted to have a large right lower lobe mass as well as lymphadenopathy likely secondary to malignancy. He is acute encephalopathy gradually improved, and he is currently back to his baseline mental status per discussion with his , however, he has quite significant memory deficits, and does not remember any conversations from the previous day. believes his dementia has been multifactorial secondary to heavy alcohol intake in the past, with smoking, but also later on drug use. Pulmonology was initially contacted for him to undergo bronchoscopy with biopsy, however, as he could not recall any of the discussions regarding the imaging findings or diagnostic plans, this was held. Discussed with his that for him to undergo diagnosis and management of suspected malignancy he would need to be able to be compliant with the and unfortunately he would may have great difficulty with this. While in the hospital noted to be getting up and out of bed and walking around at random times despite being reoriented, so one-to-one sitter had to be maintained due to risk of wandering. His prefers to follow-up with primary care provider at [place] to discuss further regarding next steps for diagnosis and possible management of the malignancy. He unfortunately likely may not be a good candidate for further assessment and treatment. Please follow-up his renal function in office to confirm continued improvement. Follow-up the enlarging AAA. Discuss again regarding goals of care with regards to suspected pulmonary malignancy. Consider referral for additional assessment of his dementia. Physical Exam Const: COMMON NORMALS: no apparent distress OTHER: Better mood today. He is awake and alert. Comfortable. Does not remember seeing me yesterday. HENMT: COMMON NORMALS: oropharynx normal Neck/C-Spine: COMMON NORMALS: no JVD Resp: COMMON NORMALS: normal respiratory effort AUSCULTATION: diminished lung sounds on the right Cardio: COMMON NORMALS: no JVD, regular rhythm, S1 normal heart sound, S2 normal heart sound and no murmurs RHYTHM: regular rhythm HEART SOUNDS: S1 normal and S2 normal GI: COMMON NORMALS: normal to inspection, nondistended, normoactive bowel sounds, soft to palpation and non-tender PALPATION: Yes soft Extremity: COMMON NORMALS: no joint enlargement and no pedal edema Neuro: COMMON NORMALS: moves all extremities Skin: COMMON NORMALS: no rashes or lesions noted GENERAL SKIN EXAM: no rashes or lesions noted Urinary Catheter Management^: Us: Cath Placed During This Visit: yes, but has since been removed by the nurse Urinary Catheter Date of Insertion: 11/23/19 Urinary Catheter Time of Insertion: 23:05 Date Urinary Catheter Removed: 11/28/19 Discharge Data Data Completed and Pending: Completed Studies During Hospitalization Category Date Time Status CT abdomen pelvis wo con 14231 Urge nt Cat Scan 11/23/19 18:[address] chest wo con 7 1250 Urgent Cat Scan 11/23/19 17:[address] head wo con* 7 0450 Routine Cat Scan 11/24/19 08:00 Completed XR chest 1V norberto ble [id number] Stat Exams 11/23/19 15:57 Completed XR chest 1V norberto ble [id number] Stat Exams 11/23/19 21:27 Completed XR elbow LT min 3 V* [id number] Routine Exams 11/26/19 08:42 Completed XR forearm LT 2V [id number] Stat Exams 11/25/19 04:14 Completed XR humerus LT 730 60 Urgent Exams 11/25/19 04:00 Completed Pending at discharge Category Date Time Status Blood Culture Sta t Lab 11/23/19 18:43 Results Labs from last 24 hours 11/28/19 11/28/19 11/28/19 16:18 14:05 11:27 WBC RBC Hgb Hct MCV MCH MCHC RDW Plt Count MPV Neut % (Auto) Lymph % (Auto) [place] % (Auto) Eos % (Auto) Baso % (Auto) Neut # (Auto) Lymph # (Auto) [place] # (Auto) Eos # (Auto) Baso # (Auto) Nucleated RBC % (a uto) Nucleated RBCs # Sodium Potassium Chloride Carbon Dioxide Anion Gap BUN Creatinine Glucose POC Glucose 127 122 Calcium Total Bilirubin AST ALT Alkaline Phosphata se Total Protein Albumin Globulin Vancomycin Trough 20.6 H 11/28/19 11/28/19 11/28/19 07:53 05:52 05:52 WBC 15.6 H RBC 3.67 L Hgb 9.9 L Hct 31.1 L MCV 84.7 MCH 27.0 L MCHC 31.8 RDW 16.4 H Plt Count 215 MPV 10.0 Neut % (Auto) 82.8 Lymph % (Auto) 8.3 [place] % (Auto) 5.2 Eos % (Auto) 2.3 Baso % (Auto) 0.3 Neut # (Auto) 12.9 H Lymph # (Auto) 1.3 [place] # (Auto) 0.8 Eos # (Auto) 0.4 Baso # (Auto) 0.1 Nucleated RBC % (a uto) 0 Nucleated RBCs # 0.0 Sodium 138 Potassium 3.4 L Chloride 103 Carbon Dioxide 21 L Anion Gap 17.4 BUN 52 H Creatinine 2.0 H Glucose 123 H POC Glucose 109 Calcium 9.1 Total Bilirubin 0.6 AST 22 ALT 12 Alkaline Phosphata se 66 Total Protein 6.1 L Albumin 2.7 L Globulin 3.4 Vancomycin Trough 02/07/20 22:06 WBC RBC Hgb Hct MCV MCH MCHC RDW Plt Count MPV Neut % (Auto) Lymph % (Auto) [place] % (Auto) Eos % (Auto) Baso % (Auto) Neut # (Auto) Lymph # (Auto) [place] # (Auto) Eos # (Auto) Baso # (Auto) Nucleated RBC % (a uto) Nucleated RBCs # Sodium Potassium Chloride Carbon Dioxide Anion Gap BUN Creatinine Glucose POC Glucose 144 Calcium Total Bilirubin AST ALT Alkaline Phosphata se Total Protein Albumin Globulin Vancomycin Trough Vitals: Last Vital Signs Temp 98.4 F 11/28/19 16:00 Pulse 91 11/28/19 16:00 Resp 16 11/28/19 16:00 BP 110/69 11/28/19 16:00 Pulse Ox 93 11/28/19 16:00 Discharge Plan Discharge Patient Disposition: Home Health Service Condition: Stable Prescriptions: New aspirin 81 mg Tablet,Delayed Release (Dr/Ec) 81 mg PO DAILY Qty: 30 RF: 0 pantoprazole 40 mg Tablet,Delayed Release (Dr/Ec) 40 mg PO BID Qty: 60 RF: 0 ciprofloxacin HCl 250 mg tablet 250 mg PO BID 1 Days Qty: 2 RF: 0 potassium chloride 10 mEq tablet extended release 10 meq PO DAILY Qty: 7 RF: 0 Continued glipizide 5 mg Tablet 2.5 mg PO BID RF: 0 Vit 3 1,000 units DAILY RF: 0 atorvastatin 80 mg tablet PO QPM RF: 0 ferrous gluconate 324 mg DAILY RF: 0 Changed metoprolol tartrate 25 mg Tablet 12.5 mg PO BID Qty: 0 RF: 0 Discontinued clopidogrel [Plavix] 75 mg Tablet 75 mg PO DAILY RF: 0 lisinopril 10 mg Tablet 10 mg PO DAILY RF: 0 Discharge Orders: Discharge Order (Routine); Ordered 11/28/19 Ordered By: Mark Bradford Referrals: [facility] ([facility]) [Outside] Cb Steen [Family Provider] - 4-7 days (Please contact the [place] clinic on Saturday to schedule an appointment to see Dr. Steen. Lung mass, DONNA, Aortic aneurysm, UTI) Discharge Diet: GI Soft Patient Instructions: Ciprofloxacin (By mouth), Potassium Chloride (By mouth), Pantoprazole (By mouth), Coronary Artery Disease (GEN), Urinary Tract Infection in Men (GEN) Activity Restrictions/Additional Instructions: Strict fall precautions. Please discuss with his primary care doctor regarding mass found in your lung suspicious for malignancy. Please have primary care provider follow-up with ultrasound on abdominal aortic aneurysm which has slightly increased in size compared to previous. Have your primary care doctor to follow-up your renal function in office after improving acute kidney injury. Avoid any kind of NSAIDs, like ibuprofen, Aleve, etc. Add protein shakes (Ensure Plus) with meals 3 times daily. Discharge Date/Time: 11/28/19 17:01 Discharge Attestations Time Spent in Discharge Care*: greater than 30 min Quality Metrics Clinical Quality Measures During this hospital stay, did patient experience: None Coding Level of Care Code Acute Health Administration Teacher for Chg Fwd Diagnoses Septic shock due to urinary tract infection A41.9; R65.21; N39.0 Acute renal failure superimposed on stage 2 chronic kidney disease N17.9; N18.2 Right lower lobe lung mass R91.8 Hypertension I10 CAD (coronary artery disease) I25.10 Aneurysm of infrarenal abdominal aorta I71.4
== END 2019-11-28 17:01 | disposition home health service (06) | DRG 871 ==
LOC: ER 22:53 → ICU 22:54 → MEDSURG 11-27 13:30
PROVIDERS: Internal Medicine; Internal Medicine Nephrology; Admitting Provider Family Medicine; Emergency Provider Emergency Medicine; Family Provider Family Medicine; PCP Internal Medicine; Visit Provider Internal Medicine
DX: A41.9 Sepsis, unspecified organism (principal); R65.21 Severe sepsis with septic shock; N39.0 Urinary tract infection, site not specified; N17.9 Acute kidney failure, unspecified; G93.40 Encephalopathy, unspecified; N10 Acute pyelonephritis; E87.2 Acidosis; E87.1 Hypo-osmolality and hyponatremia; J44.9 Chronic obstructive pulmonary disease, unspecified; I12.9 Hypertensive chronic kidney disease with stage 1 through stage 4 chronic kidney disease, or unspecified chronic kidney disease; N18.2 Chronic kidney disease, stage 2 (mild); I71.4 Abdominal aortic aneurysm, without rupture; F03.90 Unspecified dementia, unspecified severity, without behavioral disturbance, psychotic disturbance, mood disturbance, and anxiety; Z95.5 Presence of coronary angioplasty implant and graft; E78.5 Hyperlipidemia, unspecified; Z87.442 Personal history of urinary calculi; F17.210 Nicotine dependence, cigarettes, uncomplicated; Z87.440 Personal history of urinary (tract) infections; R91.8 Other nonspecific abnormal finding of lung field; R59.0 Localized enlarged lymph nodes; I95.9 Hypotension, unspecified; S50.12XA Contusion of left forearm, initial encounter; S40.022A Contusion of left upper arm, initial encounter; W19.XXXA Unspecified fall, initial encounter; F10.20 Alcohol dependence, uncomplicated; E83.39 Other disorders of phosphorus metabolism
CPT/HCPCS: 12345; 36415; 36416; 36556; 36592; 51702; 70450; 71045; 71250; 73060; 73080; 73090; 74176; 80053; 80202; 81001; 82550; 82570; 82962; 83605; 83735; 84100; 84145; 84156; 84300; 84443; 85025; 85730; 87040; 87086; 87493; 87641; 93005; 94664; 96360; 96361; 96365; 96366; 96372; 96374; 96375; 99284; C1751; C9113; J1630; J1644; J1815; J2060; J2270; J2543; J3370; J3490; J7030; J7050; Q3014

== ENCOUNTER 2019-12-02 12:06 | Inpatient (IN) | payer OTHER, MEDICARE, SELFPAY ==
[2019-12-02] VITALS (12 sets, daily range): BP systolic 88–142; BP diastolic 47–70; PULSE 83–108; RESP 16–24; TEMP 36.3–37.1; O2SAT 91–95; BMI 32.1
--- NOTE | 2019-12-02 12:27 | ED_ITS ---
Entered by Ritu Box, acting as scribe for HPI - General Adult General: Chief complaint: General Medical Stated complaint: possible uti Time Seen by Provider: 12/02/19 12:54 History of Present Illness: HPI narrative: 69 yo male presents with possible UTI. Pts home health nurse felt like he needed to be seen. Pt has also had some cough and shortness of breath. Denies any chest pain. Denies any vomiting or diarrhea. He has had some abdominal discomfort. MD complaint: Possible UTI Associated symptoms: Reports dyspnea; Deny chest pain, malaise, nausea, rash or vomiting Review of Systems Const: Denies: fever, chills, body aches, change in appetite, fatigue or malaise ENMT: Denies: throat pain, ear pain, nasal discharge or nasal congestion Card: Denies: chest pain, edema, shortness of breath on exertion or shortness of breath when lying down Resp: Reports: shortness of breath; Denies: productive cough or non-productive cough GI: Reports: abdominal pain; Denies: nausea, vomiting, vomiting blood, coffee grounds in vomit, diarrhea, constipation, bloating, blood in stool or black tarry stool : Reports: painful urination; Denies: flank pain, urinary frequency or urinary urgency Skin/Breast: Denies: rash or itching PFSH ED PFSH: Statuses (acute, chronic, etc) shown below reflect problem list status as previously entered and may not be historically accurate Medical History (Updated 12/03/19 @ 13:51 by El Whitaker DO) Aneurysm of infrarenal abdominal aorta (Acute) CAD (coronary artery disease) (Acute) Chronic kidney disease, stage III (moderate) (Acute) Hypertension (Acute) Nephrolithiasis (Acute) Right lower lobe lung mass (Acute) Social History (Updated 12/02/19 @ 17:16 by Tejas Madrigal MD) Smoking and tobacco status: former smoker Physical Exam Const: COMMON NORMALS: no apparent distress GENERAL APPEARANCE: cooperative and comfortable ORIENTATION/CONSCIOUSNESS: Yes awake, Yes oriented to person, Yes oriented to place and Yes oriented to time HENMT: COMMON NORMALS: normocephalic, head/scalp atraumatic, hearing grossly normal bilaterally, external ears normal, EAC's normal, TM's normal bilaterally, nasal mucous membranes and turbinates normal, moist oral mucous membranes and oropharynx normal HEAD & SCALP: normocephalic and atraumatic NOSE: nasal mucous membranes and turbinates normal EXTERNAL EAR: Yes external ears normal EXTERNAL AUDITORY CANAL: EAC's normal TYMPANIC MEMBRANE: TM's normal bilaterally Eye: COMMON NORMALS: PERRL, EOMs intact bilaterally, conjunctivae normal and no scleral icterus CONJUNCTIVA: Yes conjunctivae normal PUPIL: Yes PERRL Neck/C-Spine: COMMON NORMALS: full ROM, no lymphadenopathy, supple and no JVD Lymph: LYMPHATIC: no lymphadenopathy noted and no lymphedema noted Resp: COMMON NORMALS: normal respiratory effort, no retractions, no use of accessory muscles and clear to auscultation bilaterally AUSCULTATION: clear to auscultation bilaterally Cardio: COMMON NORMALS: no JVD, regular rate, regular rhythm and no murmurs RATE: regular rate RHYTHM: regular rhythm GI: COMMON NORMALS: soft to palpation PALPATION: Yes soft, Yes tender and No guarding Extremity: COMMON NORMALS: normal to inspection, normal capillary refill, no clubbing, cyanosis or edema, no calf tenderness and no pedal edema Neuro: SENSORIUM/ORIENTATION: Yes oriented to person, Yes oriented to place and Yes oriented to time Skin: COMMON NORMALS: no rashes or lesions noted GENERAL SKIN EXAM: no rashes or lesions noted Course ED course: Care turned over to Dr. Toledo at change of shift. Vital Signs: Vital signs: Vital Signs Temperature 97.7 F 12/03/19 11:20 Pulse Rate 94 12/03/19 11:20 Respiratory Rate 18 12/03/19 11:20 Blood Pressure 95/50 12/03/19 11:20 Pulse Oximetry 91 12/03/19 11:20 [facility] - General Adult Lab Data: Labs: Lab Results 12/02/19 12/02/19 12/02/19 Range/Units 12:49 13:20 13:20 WBC 20.4 H (4.0-10.0) 10^3/ uL RBC 3.80 L (4.1-5.3) 10^6/u L Hgb 10.2 L (11.7-16.6) g/dL Hct 33.1 L (42.0-52.0) % MCV 87.1 (80-94) fL MCH 26.8 L (28.0-34.0) pg MCHC 30.8 (30.0-36.0) g/dL RDW 18.3 H (12.1-15.1) % Plt Count 136 (130-400) 10^3/c mm MPV 10.1 (7.4-10.4) fL Neut % (Auto) 86.9 % Lymph % (Auto) 5.9 % [place] % (Auto) 4.4 % Eos % (Auto) 1.9 % Baso % (Auto) 0.2 % Neut # (Auto) 17.7 H (1.8-7.7) 10^3/u L Lymph # (Auto) 1.2 (0.8-4.8) 10^3/u L [place] # (Auto) 0.9 (0.2-0.9) 10^3/u L Eos # (Auto) 0.4 (0.0-0.8) 10^3/u L Baso # (Auto) 0.1 (0.0-0.1) 10^3/u L Nucleated RBC % (a uto) 0 % Nucleated RBCs # 0.0 /100WBC Sodium 139 (136-145) mmol/L Potassium 3.2 L (3.5-5.1) mmol/L Chloride 102 (98-107) mmol/L Carbon Dioxide 23 (22-29) mmol/L Anion Gap 17.2 (5-19) BUN 30 H (8-23) mg/dL Creatinine 1.8 H (0.7-1.2) mg/dL Glucose 138 H (65-115) mg/dL Calcium 9.5 (8.5-10.5) mg/dL Total Bilirubin 0.6 (0.15-1.2) mg/dL AST 21 (0-40) U/L ALT 13 (0-41) U/L Alkaline Phosphata se 70 (40-130) IU/L Total Protein 6.4 L (6.6-8.7) g/dL Albumin 2.9 L (3.5-5.2) g/dL Globulin 3.5 (1.3-4.6) g/dL Lipase 73 H (13-60) U/L Urine Color Yellow (Yellow) Urine Appearance Cloudy (CLEAR) Urine pH 5 (5-7) Ur Specific Gravit y 1.015 (1.005-1.030) Urine Protein Trace (Negative) Urine Glucose (UA) Norm (Normal) Urine Ketones Negative (Negative) Urine Occult Blood 3+ H (Negative) Urine Nitrate Negative (Negative) Urine Bilirubin 1+ H (NEGATIVE) Prot Sulfosalicyli c Acd Negative Urine Urobilinogen Norm (Negative) mg/dL Ur Leukocyte Heather ase 1+ H (Negative) Urine RBC 25-40 H (0-2) /hpf Urine WBC 15-25 H (0-5) /hpf Ur Squamous Epith Cells 0-4 H (0-5) Urine Bacteria 2+ H (NONE) Urine Mucus Trace Discharge Plan Discharge Patient Disposition: Admitted As Inpatient Admit Provider: Tejas Madrigal Clinical Impression: Septic shock due to urinary tract infection, Acute renal failure superimposed on stage 2 chronic kidney disease, Right lower lobe lung mass Condition: Stable Interventions: ED Discharge Assessment Last Done: 12/02/19 17:59 Discharge Date/Time: 12/02/19 18:06 Coding Level of Care Code ED Contaminated Land Consultant for Chg Fwd Exam Problem Focused The documentation recorded by the Isauro martinez Kialy, accurately reflects the service I personally performed and the decisions made by Sherman siu Curtis L, DO Dec 02, 2019 12:06
--- NOTE | 2019-12-02 12:57 | XRR_ITS ---
PROCEDURE INFORMATION: Exam: XR Chest, 1 View Exam date and time: 12/02/2019 1:09 PM Age: 69 years old Clinical indication: Cough and dyspnea; Smoker's cough; Additional info: Dyspnea/cough TECHNIQUE: Imaging protocol: XR of the chest Views: 1 view. COMPARISON: XR CHEST 11/23/2019 9:[address] CHEST 11/23/2019 5:53 PM FINDINGS: Tubes, catheters and devices: Interval removal of the right jugular central line. Lungs: Interval increase in right basilar airspace disease. Calcified granuloma in the right lung base. Pleural space: Small right pleural effusion. Heart/Mediastinum: The right heart border is partially silhouetted out. Cannot exclude cardiomegaly. The mediastinum is unchanged. Interval enlargement of the right lower lobe hilar soft tissue mass, highly suspicious for malignancy. Calcified azygoesophageal recess and right hilar lymph nodes from prior granulomatous disease. Bones/joints: No acute osseous abnormality. XR/XR chest 1V portable [id number] IMPRESSION: 1. Interval enlargement of the right lower lobe soft tissue mass. 2. Right basilar airspace disease. Consider pneumonia, aspiration pneumonitis, or neoplastic infiltration, with or without atelectasis.
--- NOTE | 2019-12-02 12:58 | ECG_ITS ---
Measurements Intervals [place] Rate: 105 P: 51 UT: 194 QRS: 32 QRSD: 78 T: 57 QT: 328 QTc: 434 SINUS TACHYCARDIA WITH OCCASIONAL VENTRICULAR PREMATURE COMPLEXES SEPTAL MYOCARDIAL INFARCTION , PROBABLY OLD [40+ ms Q WAVE IN V1/V2] Compared to ECG 11/23/2019 16:19:49 Ventricular premature complex(es) now present Myocardial infarct finding now present Sinus rhythm no longer present First degree AV block no longer present Electronically Signed On 12-02-2019 20:55:07 MANAGER CARE MANAGEMENT by Tj Rios M.D. [id number]
--- NOTE | 2019-12-02 13:10 | PC.NURSE ---
Nurse was getting ready to do a flu swab on the pt. After explaining how the flu swab is done, pt stated, Do you want me to hold a gun to your head. Nurse informed pt he can refuse to have a flu swab. Pt stated yes, I refuse to do the flu swab. Dr. Whitaker informed.
[2019-12-02 13:37] LABS: Basophils # 0.1 10^3/uL (0.0-0.1); Basophils % 0.2 %; Eosinophils # 0.4 10^3/uL (0.0-0.8); Eosinophils % 1.9 %; Hematocrit 33.1 % (42.0-52.0); Hemoglobin 10.2 g/dL (11.7-16.6); Lymphocytes # 1.2 10^3/uL (0.8-4.8); Lymphocytes % 5.9 %; Mean Corpuscular HGB Conc 30.8 g/dL (30.0-36.0); Mean Corpuscular Hemoglobin 26.8 pg (28.0-34.0); Mean Corpuscular Volume 87.1 fL (80-94); Mean Platelet Volume 10.1 fL (7.4-10.4); Monocytes # 0.9 10^3/uL (0.2-0.9); Monocytes % 4.4 %; Neutrophils # 17.7 10^3/uL (1.8-7.7); Neutrophils % 86.9 %; Nucleated Red Blood Cells % 0 %; Platelet Count 136 10^3/cmm (130-400); Red Cell Distribution Width 18.3 % (12.1-15.1); White Blood Count 20.4 10^3/uL (4.0-10.0)
[2019-12-02 13:59] LABS: Urine Appearance Cloudy (CLEAR); Urine Color Yellow (Yellow); pH Urine 5 (5-7)
[2019-12-02 14:00] LABS: Add Urine Microscopic? YES; Bilirubin Urine 1+ (NEGATIVE); Blood Urine 3+ (Negative); Glucose Urine UA Norm (Normal); Ketones Urine Negative (Negative); Leukocyte Esterase Urine 1+ (Negative); Nitrate Urine Negative (Negative); Protein Urine Trace (Negative); Specific Gravity, Urine 1.015 (1.005-1.030); Sulfosalicylic Acid Urine Negative; Urobilinogen Urine Norm (Negative)
[2019-12-02 14:01] LABS: Alanine Aminotransferase 13 U/L (0-41); Albumin Level 2.9 g/dL (3.5-5.2); Alkaline Phosphatase 70 IU/L (40-130); Anion Gap 17.2 (5-19); Aspartate Amino Transferase 21 U/L (0-40); Blood Urea Nitrogen 30 mg/dL (8-23); Calcium 9.5 mg/dL (8.5-10.5); Carbon Dioxide 23 mmol/L (22-29); Chloride 102 mmol/L (98-107); Globulin 3.5 g/dL (1.3-4.6); Glucose 138 mg/dL (65-115); Lipase 73 U/L (13-60); Potassium 3.2 mmol/L (3.5-5.1); Sodium 139 mmol/L (136-145); Total Bilirubin 0.6 mg/dL (0.15-1.2); Total Protein 6.4 g/dL (6.6-8.7)
[2019-12-02 14:07] LABS: RBC Urine 25-40 /hpf (0-2)
[2019-12-02 14:08] LABS: Add Urine Culture? Yes; Bacteria Urine 2+; Mucus Urine TRACE; Squamous Epithelial Cell Urine 0-4 (0-5); WBC Urine 15-25 /hpf (0-5)
[2019-12-02] MEDS: piperacillin-tazobactam 3.375 GM in sodium chloride 0.9% (plus) 50 ML IV ×2 (15:10→22:39)
[2019-12-02] MEDS: vancomycin 1,000 MG in sodium chloride 0.9% 250 ML 250 MG IV (16:04)
--- NOTE | 2019-12-02 17:13 | PM.HP ---
Providers/Chief Complaint Primary Care Provider: Wally Franco Chief Complaint: possible uti History of Present Illness Corbin Morgan is a 69 year old male that has been referred to the ER by home health for possible UTI. I am not for sure why. Patient's is not here currently. Patient has significant dementia and cannot relate why he is here, or really any of his history whatsoever. I did call his and she was mainly concerned that he was sleeping all the time, had had significant decreased p.o. intake both solids and liquids for the last 4 to 5 days. He has not had any fever. He has been coughing. There is been no vomiting. He does continue to lose weight. He has had a recent hospital stay, for renal failure as well as a new diagnosis of a right lower lobe mass with mediastinal adenopathy thought to be malignancy. Bronchoscopy was not attempted at that time secondary the patient's significant dementia and failure to understand implications of procedure, or treatment. Review of Systems General: Reports: ROS unobtainable due to mental status and other (Patient still with significant dementia unable to participate) Medications/Allergies Allergies Allergy/AdvReac Type Severity Reaction Status Date / Time pcn Allergy Unknown Uncoded 11/29/19 15:12 PFSH Acute PFSH: Statuses (acute, chronic, etc) shown below reflect problem list status as previously entered and may not be historically accurate Medical History (Updated 12/02/19 @ 17:21 by Tejas Madrigal MD) Aneurysm of infrarenal abdominal aorta (Acute) CAD (coronary artery disease) (Acute) Chronic kidney disease, stage III (moderate) (Acute) Hypertension (Acute) Nephrolithiasis (Acute) Right lower lobe lung mass (Acute) Social History (Updated 12/02/19 @ 17:16 by Tejas Madrigal MD) Smoking and tobacco status: former smoker Supplemental PFSH Information: Unable to obtain social history from the patient secondary to dementia, as well as family history. Vitals/I&O/Wt Last Vital Signs Temp 97.3 F L 12/02/19 12:14 Pulse 94 12/02/19 17:00 Resp 17 12/02/19 17:00 BP 117/67 12/02/19 17:00 Pulse Ox 92 12/02/19 17:00 02/12/20 02/12/20 02/12/20 06:59 14:59 22:59 Intake Total 50 / 50 Balance 50 / 50 Weight last 48 hrs Weight 104.326 kg Physical Exam Narrative: EXAM NARRATIVE: General exam very confused white male, reporting he feels fine. HEENT: Pupils equally round. Oropharynx clear Neck is supple no lymphadenopathy or thyromegaly Cardiovascular regular rate and rhythm, heart sounds distant Lungs diminished breath sounds right lung. No wheezing Abdomen is soft with positive bowel sounds. No obvious organomegaly was deferred Extremities no cyanosis clubbing. Trace edema bilaterally Data : 12/02/19 13:20 12/02/19 13:20 Other data: Chest x-ray demonstrates right lower lobe infiltrate, mass Urine demonstrates 15-25 whites, 25-40 reds A&P Assessment and plan (1) Pneumonia: Likely postobstructive in this patient with large mass. Will initiate vancomycin and Zosyn. I discussed some with his , regarding his overall prognosis secondary to the severe dementia and his difficulty understanding any treatment. She is considering hospice and we will do a hospice consult tomorrow. Status: Acute Code(s): J18.9 - Pneumonia, unspecified organism (2) Leukocytosis: Secondary to pneumonia Status: Acute Code(s): D72.829 - Elevated white blood cell count, unspecified (3) Hypokalemia: Will supplement Status: Acute Code(s): E87.6 - Hypokalemia (4) Right lower lobe lung mass: At this point cannot effectively treat with his longstanding dementia since 2006. He cannot understand treatment implications, or treatment itself. Status: Acute Code(s): R91.8 - Other nonspecific abnormal finding of lung field Additional A&P Information Possible UTI chronic kidney disease stage III, with recent episode of acute renal failure History of tobacco dependency History of weight loss likely secondary to malignancy Coronary artery disease Hypertension Heparin for DVT prophylaxis Repeat laboratory tomorrow with CBC and BMP Allow natural . Discussed with . Attestations Medical Necessity Statement*: Will need greater than 2 midnight stay for treatment of pneumonia, postobstructive 55 minutes spent for this history and physical, evaluation with , review of medicines laboratory and decision making plan. 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
[2019-12-02] MEDS: levofloxacin-dextrose 5 % 750 MG/150 ML PREMIX 150 MG IV (17:55)
[2019-12-02 18:48] LABS: Glucose Point of Care 176 mg/dL (70-110)
--- NOTE | 2019-12-02 19:04 | PC.PHAR ---
Vancomycin dosing per pharmacy 1500 mg q24h Patient: Floor: Age: 69 yo Serum creatinine: 1.8 mg/dL Height: 70.9 Inches Weight (kg): 104 IBW (kg): 75.07 Dosing wt(kg): 104 Estimated Creatinine clearance (ml/min): 40.0 CRCL method: Cockcroft and Gault using ibw(default). Drug selected: Vancomycin Loading dose (mg): Vd (liters): 72.8 (factor used: 0.7 L/kg) Pablo (hr-1): 0.038 Half life (hrs): 18.24 CLvanco= 2.766 L/hr Recommended dose: 1500 mg Interval: 24 hrs Infusion time (hrs): 1 Predicted peak (mcg/mL): 33.8 Predicted trough (mcg/mL): 14.10 Total body weight is being used for vancomycin dosing. Recommendations: Give Vancomycin 1500 mg q 24 hrs with an expected Cpeak of 33.8 mcg/ml and an expected Ctrough of 14.10 mcg/ml
[2019-12-02] MEDS: atorvastatin 40 mg Tablet 80 MG PO (19:19)
[2019-12-02] MEDS: pantoprazole DR 40 mg Tablet PO (19:19)
[2019-12-02] MEDS: heparin 5,000 unit/mL INJ 1 mL 5000 UNIT SUBCUT (19:20)
[2019-12-02] MEDS: metoprolol tartrate 25 mg Tablet 12.5 MG PO (19:21)
[2019-12-02] MEDS: sodium chloride 0.9% 1,000 ML 75 ML IV (19:23)
[2019-12-02 22:16] LABS: Glucose Point of Care 127 mg/dL (70-110)
[2019-12-02] MEDS: sodium chloride 0.9% 500 ML 999 ML IV (22:43)
[2019-12-03 02:07] LABS: Basophils % 0.2 %; Eosinophils # 0.3 10^3/uL (0.0-0.8); Eosinophils % 1.5 %; Hematocrit 29.4 % (42.0-52.0); Hemoglobin 9.1 g/dL (11.7-16.6); Lymphocytes # 0.9 10^3/uL (0.8-4.8); Lymphocytes % 5.7 %; Mean Corpuscular Volume 87.2 fL (80-94); Mean Platelet Volume 9.4 fL (7.4-10.4); Monocytes # 0.8 10^3/uL (0.2-0.9); Monocytes % 4.6 %; Neutrophils # 14.2 10^3/uL (1.8-7.7); Neutrophils % 87.3 %; Nucleated Red Blood Cells % 0 %; Platelet Count 96 10^3/cmm (130-400); Red Blood Count 3.37 10^6/uL (4.1-5.3); Red Cell Distribution Width 18.2 % (12.1-15.1); White Blood Count 16.3 10^3/uL (4.0-10.0)
[2019-12-03 02:23] LABS: Alanine Aminotransferase 11 U/L (0-41); Albumin Level 2.5 g/dL (3.5-5.2); Alkaline Phosphatase 63 IU/L (40-130); Anion Gap 15.6 (5-19); Aspartate Amino Transferase 20 U/L (0-40); Blood Urea Nitrogen 32 mg/dL (8-23); Calcium 9.1 mg/dL (8.5-10.5); Carbon Dioxide 22 mmol/L (22-29); Chloride 105 mmol/L (98-107); Globulin 3.4 g/dL (1.3-4.6); Glucose 129 mg/dL (65-115); Osmolality Calculated 287 mOsm/kg (285-295); Potassium 3.6 mmol/L (3.5-5.1); Sodium 139 mmol/L (136-145); Total Bilirubin 0.9 mg/dL (0.15-1.2); Total Protein 5.9 g/dL (6.6-8.7)
[2019-12-03 04:00] VITALS: BP 112/56; PULSE 89; RESP 22; TEMP 36.7; O2SAT 93
[2019-12-03] MEDS: heparin 5,000 unit/mL INJ 1 mL 5000 UNIT SUBCUT ×2 (05:37→17:30)
[2019-12-03] MEDS: piperacillin-tazobactam 3.375 GM in sodium chloride 0.9% (plus) 50 ML IV ×2 (05:38→13:37)
[2019-12-03 06:23] LABS: Influenza A by IFA Negative (Negative); Influenza B by IFA Negative (Negative)
[2019-12-03 06:32] LABS: Glucose Point of Care 125 mg/dL (70-110)
[2019-12-03 07:26] VITALS: BP 98/50; PULSE 91; RESP 20; TEMP 36.6; O2SAT 90
[2019-12-03] MEDS: aspirin 81 mg EC Tablet PO (08:41)
[2019-12-03] MEDS: pantoprazole DR 40 mg Tablet PO ×2 (08:41→17:27)
[2019-12-03] MEDS: metoprolol tartrate 25 mg Tablet 12.5 MG PO ×2 (08:41→21:05)
[2019-12-03 10:53] LABS: Glucose Point of Care 127 mg/dL (70-110)
[2019-12-03 11:20] VITALS: BP 95/50; PULSE 94; RESP 18; TEMP 36.5; O2SAT 91
--- NOTE | 2019-12-03 12:29 | P.PN_ITS ---
Subjective Subjective: Interval history: Corbin reports he is doing okay. He reports he cannot really remember why he is here. Denies being short of breath. Medications: Reviewed: Yes Vitals/I&O/Wt Last Vital Signs Temp 97.7 F 12/03/19 11:20 Pulse 94 12/03/19 11:20 Resp 18 12/03/19 11:20 BP 95/50 12/03/19 11:20 Pulse Ox 91 12/03/19 11:20 12/02/19 12/03/19 12/03/19 22:59 06:59 14:59 Intake Total 1071.042 / 1069.594 8343.958 / 2350.000 240 / 240 Balance 1071.042 / 3720.451 3534.958 / 2350.000 240 / 240 Weight last 48 hrs Weight 104.326 kg Physical Exam Narrative: EXAM NARRATIVE: General exam confused Cardiovascular regular rate and rhythm, heart sounds distant Lungs diminished breath sounds right lung. No wheezing Abdomen is soft with positive bowel sounds. No obvious organomegaly Extremities no cyanosis clubbing. Trace edema bilaterally Data : 12/03/19 02:00 12/03/19 02:00 Micro: Microbiology 12/02/19 17:31 Blood Culture - Preliminary Blood SPECIMEN COLLECTED 12/02/19 17:30 Blood Culture - Preliminary Blood SPECIMEN COLLECTED A&P Assessment and plan (1) Pneumonia: Likely postobstructive in this patient with large mass. Will initiate vancomycin and Zosyn. I discussed some with his , regarding his overall prognosis secondary to the severe dementia and his difficulty understanding any treatment. She is considering hospice and hospice consult is pending. Continue vancomycin and Zosyn currently White blood cell count decreasing Patient on room air oxygen Status: Acute Code(s): J18.9 - Pneumonia, unspecified organism (2) Leukocytosis: Secondary to pneumonia. Improving Status: Acute Code(s): D72.829 - Elevated white blood cell count, unspecified (3) Hypokalemia: Resolved following supplementation Status: Acute Code(s): E87.6 - Hypokalemia (4) Right lower lobe lung mass: At this point cannot effectively treat with his longstanding dementia since 2006. He cannot understand treatment implications, or treatment. Status: Acute Code(s): R91.8 - Other nonspecific abnormal finding of lung field Additional A&P Information Possible UTI chronic kidney disease stage III, with recent episode of acute renal failure History of tobacco dependency History of weight loss likely secondary to malignancy Coronary artery disease Hypertension Heparin for DVT prophylaxis Allow natural Attestations Medical Necessity Statement*: Needs continued hospitalization for IV antibiotics secondary to postobstructive pneumonia. Also exploring possibility of home with hospice. 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
[2019-12-03 15:12] VITALS: BP 144/75; PULSE 89; RESP 18; TEMP 36.6; O2SAT 92
[2019-12-03 17:08] LABS: Glucose Point of Care 111 mg/dL (70-110)
[2019-12-03 20:00] VITALS: BP 108/69; PULSE 93; RESP 22; TEMP 36.8; O2SAT 92
[2019-12-03] MEDS: atorvastatin 40 mg Tablet 80 MG PO (21:05)
[2019-12-03 21:09] LABS: Glucose Point of Care 147 mg/dL (70-110)
[2019-12-04] VITALS: BP 126/74; PULSE 79; RESP 24; TEMP 36.5; O2SAT 93
[2019-12-04 04:00] VITALS: BP 122/75; PULSE 91; RESP 20; TEMP 36.3; O2SAT 94
--- NOTE | 2019-12-04 05:21 | PM.EVENT ---
Event Note Event Note: IV came out. Multiple staff unable to replace. After review of chart showing jane DC with hospice soon, have left IV out for now and ordered oral doxycycline. Through night patient has become more agitated. Recently found to have distended bladder and unable to urinate. Refusing attempts to straight cath. Have ordered 1mg ativan IM x i dose to facilitate calming him down so bladder can be emptied.
[2019-12-04] MEDS: heparin 5,000 unit/mL INJ 1 mL 5000 UNIT SUBCUT ×2 (06:17→17:43)
[2019-12-04] MEDS: LORazepam 2 mg/mL INJ 1 mL 1 MG IM (06:17)
[2019-12-04 06:37] LABS: Glucose Point of Care 118 mg/dL (70-110)
--- NOTE | 2019-12-04 07:52 | PC.NURSE ---
patient was up in room and doesn't follow safety instructions, when instructed he needed to call for help patient became agitated. TAR HEATERZheng Toscano with patient helping him back to bed he became more agitated and lightly shoved her saying Get away from me . Patient is in bed at this time, he was redirected to his surroundings and informed that staff is only trying to help him and that we are concerned for his safety. Dr. Madrigal notified.
[2019-12-04 08:00] VITALS: BP 121/59; PULSE 96; RESP 20; O2SAT 92
--- NOTE | 2019-12-04 09:08 | PC.NURSE ---
THIS NURSE CALLED TO ROOM BECAUSE PATIENT WAS SITTING IN THE FLOOR. ASSESSED PATIENT, DOES NOT APPEAR TO HAVE ANY INJURIES, IS NOT COMPLAINING OF PAIN. DR. CRAIG ENTERED ROOM AND ASSESSED PATIENT. ORDERS FOR ONE ON ONE SITTER RECEIVED. PATIENT IN BED RESTING AT THIS TIME SITTER IN ROOM.
[2019-12-04] MEDS: metoprolol tartrate 25 mg Tablet 12.5 MG PO (09:42)
[2019-12-04] MEDS: pantoprazole DR 40 mg Tablet PO ×2 (09:42→17:42)
[2019-12-04] MEDS: aspirin 81 mg EC Tablet PO (09:42)
[2019-12-04] MEDS: doxycycline 100 mg Tablet PO ×2 (09:42→17:42)
[2019-12-04] MEDS: tamsulosin 0.4 mg Capsule PO (09:44)
[2019-12-04 11:09] LABS: Glucose Point of Care 126 mg/dL (70-110)
[2019-12-04 12:00] VITALS: BP 97/49; PULSE 89; RESP 18; TEMP 36.3; O2SAT 89
--- NOTE | 2019-12-04 12:15 | P.DS_ITS ---
Discharge Providers Date of Admission: 12/02/19 16:43 Date of Discharge: December 04, 2019 Attending Provider at Admission: Tejas Madrigal MD Attending Provider at Discharge: Tejas Madrigal MD Primary Care Provider: Wally Franco Diagnoses at Discharge Discharge Diagnosis (1) Pneumonia: Status: Acute Problem details: Will discharge on p.o. Levaquin, to hospice (2) Leukocytosis: Status: Acute Problem details: See above (3) Hypokalemia: Status: Acute Problem details: Corrected (4) Right lower lobe lung mass: Status: Acute Problem details: No further work-up, proceeding with hospice Reason for Visit Reason for Visit: Reason For Visit: possible uti Hospital Course Hospital Course: Corbin is a 69-year-old white male with known history of right lung mass with mediastinal adenopathy and significant dementia who presented to the hospital with decreased p.o. intake. He was found to have a postobstructive pneumonia. He was placed on vancomycin and Zosyn initially. He had had a recent hospitalization for severe renal failure, sepsis, and UTI. In further discussions with the she wished to proceed with hospice, secondary to his severe dementia in the face of lung mass with mediastinal adenopathy. This was arranged and he was discharged home. He will be discharged with a urinary cath secondary to urinary retention noted in the hospital. Physical Exam Narrative: EXAM NARRATIVE: Confused white male Cardiovascular regular rate and rhythm, no murmur Lungs diminished breath sounds both sides with a few expiratory wheezes Abdomen is soft with positive bowel sounds Extremities trace bilateral edema Urinary Catheter Management^: Us: Cath Placed During This Visit: yes Urethral Indwelling: Yes Reason for Continuing Indwelling Catheter: Acute Urinary Retention or Obstruction Urinary Catheter Date of Insertion: 12/04/19 Urinary Catheter Time of Insertion: 07:15 Discharge Data Data Completed and Pending: Completed Studies During Hospitalization Category Date Time Status XR chest 1V norberto ble 92008 Stat Exams 12/02/19 12:57 Completed Pending at discharge Category Date Time Status Blood Culture Sta t Lab 12/02/19 17:31 Results Sputum Culture an d Gram Stain Routi ne Lab 12/02/19 18:29 Uncollected Vancomycin Trough Routine Lab 12/04/19 19:00 Ordered Vancomycin Trough Timed Lab 12/05/19 19:00 Ordered Labs from last 24 hours 12/04/19 12/04/19 12/03/19 10:58 06:01 20:41 POC Glucose 126 118 147 12/03/19 16:58 POC Glucose 111 Vitals: Last Vital Signs Temp 97.4 F L 12/04/19 12:00 Pulse 89 12/04/19 12:00 Resp 18 12/04/19 12:00 BP 97/49 12/04/19 12:00 Pulse Ox 89 L 12/04/19 12:00 Discharge Plan Discharge Patient Disposition: Hospice - Home Condition: Stable Prescriptions: New morphine concentrate 20 mg/mL syringe 10 mg SUBLINGUAL Q2H PRN (Reason: pain) Qty: 30 RF: 0 Ativan 2 mg/mL solution 1 mg SUBLINGUAL Q4H PRN (Reason: anxiety) Qty: 30 RF: 0 tamsulosin 0.4 mg Capsule 0.4 mg PO DAILY Qty: 30 RF: 0 levofloxacin [Levaquin] 750 mg tablet 750 mg PO DAILY 7 Days RF: 0 Continued Vit 3 1,000 units 1,000 units PO DAILY RF: 0 atorvastatin 80 mg tablet 80 mg PO DAILY RF: 0 ferrous gluconate 324 mg 324 mg PO DAILY RF: 0 aspirin 81 mg Tablet,Delayed Release (Dr/Ec) 81 mg PO DAILY Qty: 30 RF: 0 pantoprazole 40 mg Tablet,Delayed Release (Dr/Ec) 40 mg PO BID Qty: 60 RF: 0 metoprolol tartrate 25 mg Tablet 12.5 mg PO BID Qty: 0 RF: 0 potassium chloride 10 mEq tablet extended release 10 meq PO DAILY Qty: 7 RF: 0 Discontinued glipizide 5 mg Tablet 2.5 mg PO BID RF: 0 Discharge Orders: Discharge Order (Routine); Ordered 12/04/19 Ordered By: Tejas Madrigal Discharge Diet: Usual diet and Diabetic Discharge Activity: Resume usual activity Activity Restrictions/Additional Instructions: Keep Us in on discharge Discharge on hospice Discharge Attestations Time Spent in Discharge Care*: greater than 30 min Quality Metrics Clinical Quality Measures During this hospital stay, did patient experience: None Coding Level of Care Code 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
[2019-12-04 12:34] VITALS: BP 97/49; PULSE 89; RESP 18; TEMP 36.3; O2SAT 89
[2019-12-04 15:38] VITALS: BP 122/61; PULSE 98; RESP 16; TEMP 36.7; O2SAT 93
--- NOTE | 2019-12-04 15:55 | PC.CHAP ---
Pastoral Care Encounter/Spiritual Assessment Type of Contact [x] Declined stacker straightener visit [] Patient/Family/Request visit [] Outpatient visit [] Follow-up visit [] Physician referral [] Code/Alert [] Routine visit [] Staff referral [] Actively dying [] Patient sleeping [] Family support [] [] Out of room [] Palliative care [] [] Receiving care in room [] Pre-surgical visit [] Trauma [] Long length of stay [] ICU visit [] Other: Relational/Emotional Strength [] Patient feels connected with others/family/visitors/staff [] Distress [] Loneliness/isolation [] Abandonment Spirituality of Patient [] Person of [place] [] Attends Druze of their [place] [] Believes in Prayer [] Reads Bible or Rastafari materials [] There are Spiritual issues to be addressed Planer Off Bearer Interventions [] Prayer [] Active listening [] Non-anxious presence [] Spiritual/emotional support [] Crisis/trauma care [] Spiritual counseling [] Bereavement support [] Provided bereavement packet [] Provided Bible/devotional materials [] Provided toy/stuffed animal, coloring book to patient or family member [] Provided Communion [] Anointing/[place] [] Salvation [] Completed spiritual assessment [] Other: Impact on Illness or Injury [] Angry [] Fearful [] Anxious [] Often cries [] Exhaustion [] Unable to work [] Unable to attend confucianism [] Unable to walk/stand [] Unable to read [] Unable to drive [] Unable to eat/drink [] Unable to sleep [] Unable to be with family [] Patient intubated [] Other: Summary Declined stacker straightener visit Time spent with patient
[2019-12-04 17:30] LABS: Glucose Point of Care 118 mg/dL (70-110)
== END 2019-12-04 19:03 | disposition hospice, home (50) | DRG 195 ==
LOC: ER 12:54 → MEDSURG 17:44
PROVIDERS: Admitting Provider Internal Medicine; Emergency Provider Family Medicine; Family Provider Family Medicine; PCP Internal Medicine; Visit Provider Internal Medicine
DX: J18.9 Pneumonia, unspecified organism (principal); E87.6 Hypokalemia; R91.8 Other nonspecific abnormal finding of lung field; Z79.82 Long term (current) use of aspirin; R59.0 Localized enlarged lymph nodes; F03.90 Unspecified dementia, unspecified severity, without behavioral disturbance, psychotic disturbance, mood disturbance, and anxiety; I25.10 Atherosclerotic heart disease of native coronary artery without angina pectoris; N18.3 Chronic kidney disease, stage 3 (moderate); I12.9 Hypertensive chronic kidney disease with stage 1 through stage 4 chronic kidney disease, or unspecified chronic kidney disease; Z87.891 Personal history of nicotine dependence; Z66 Do not resuscitate
CPT/HCPCS: 12345; 36415; 36416; 51702; 51798; 71045; 80048; 80053; 81001; 82962; 83690; 85025; 87040; 87086; 87804; 93005; 96372; 99284; J1644; J1815; J1956; J2060; J2543; J3370; J7030; J7040; J7050